=== PATIENT | male | born 1960 | race Caucasian/White ===

== ENCOUNTER 2017-06-03 22:40 | Inpatient (IN) | payer OTHER, SELFPAY ==
[~2017-06-03 22:40] MED LIST: ISOVUE-370 76%-LOCM 1 ML ONE
[2017-06-03 23:13] LABS: Bilirubin Negative (Negative); Blood, Urine Negative (Negative); Glucose, Urine (Dipstick) Negative (Negative); Ketone, Urine Negative (Negative); Nitrite Negative (Negative); Protein, Urine (Dipstick) Negative (Neg-Trace); Urobilinogen 0.2 mg/dL (0.2-1.0)
[2017-06-03 23:15] LABS: #Eosinphils 0.2 thou/uL (0.0-0.7); #Lymphocytes 1.9 thou/uL (1.20-3.40); #Monocytes 0.8 thou/uL (0.11-0.59); #Neutrophils 6.2 thou/uL (1.40-6.50); %Basophils 0.5 % (0.0-1.0); %Eosinophils 1.8 % (0.0-10.0); %Lymphocytes 20.7 % (21.0-51.0); %Monocytes 8.5 % (0.0-10.0); Hematocrit 38.4 % (42.0-52.0); Mean Platelet Volume 6.6 fL (7.4-10.4); Red Blood Cell (RBC) Count 3.94 mill/uL (4.70-6.10); White Blood Cell (WBC) Count 9.1 thou/uL (4.8-10.8)
--- NOTE | 2017-06-03 23:16 | RAD ---
RADIOGRAPH CHEST 1 VIEW: Date: 06/03/17 Time: 10:58 p.m. HISTORY: 57-year-old male with dyspnea and chest pain. COMPARISON: 11/25/16 FINDINGS: Again noted is the approximately 12 mm noncalcified left upper lobe pulmonary nodule, which has been stable since a CT angiogram of the chest of 05/06/14, indicating that it is benign. Lung volumes are low. Borderline or mild cardiomegaly. Diffuse mild interstitial densities. Questionable new additio nal irregularly shaped few nodular densities in the bilateral lower lung zones, the largest of which is approximately 3 x 3 cm density at the right lower lung zone. No pneumothorax. Lateral costophren ic angles are shape. IMPRESSION: 1. Prominent interstitial markings. 2. Questionable 3 cm new right lower lobe pulmonary mass versus infiltrate. 3. A CT may be useful. GRACE [] POS: [facility]
[2017-06-03 23:34] LABS: ALT (SGPT) 15 U/L (8-55); AST (SGOT) 17 U/L (5-34); Alkaline Phosphatase 48 U/L (40-150); Anion Gap 14 mmol/L (10-20); BUN (Urea Nitrogen) 11 mg/dL (8.4-25.7); Bilirubin, Total 0.5 mg/dL (0.2-1.2); Calc. Creatinine Clearance 0 mL/min (70-130); Calcium 8.2 mg/dL (7.8-10.44); Carbon Dioxide 20 mmol/L (22-29); Chloride 99 mmol/L (98-107); Estimated GFR-MDRD Greater than 90; Lipase 45 U/L (8-78); Magnesium 1.7 mg/dL (1.6-2.6)
[2017-06-03 23:39] LABS: Troponin I Less than 0.010 ng/mL (< 0.028)
--- NOTE | 2017-06-03 23:50 | CT ---
CTA THORAX WITH CONTRAST: DATE: 06/03/17 TIME: 11:13 p.m. (Computed Tomographic Angiography, chest(noncoronary) with contrast material, and image postprocessi ng) (PE protocol) HISTORY: 57-year-old male with productive cough, dyspnea, and chest pain. COMPARISON: CT pulmonary angiogram of 01/18/17. TECHNIQUE: IV injection of iodinated contrast: Isovue. Scan acquisition timing attempted to coincide with iodinated contrast bolus reaching maximal density in pulmonary arteries. 3D MIP reconstructions. FINDINGS: There is a new approximately 1.5 x 1 x 1 cm soft tissue attenuation pulmonary mass located in the r ight parahilar portion, deep within the right middle lobe, at a branching point of right middle lobe pulmonary arteries. This is surrounded by blood vessels (axial image 68 of 114, series 2 and series 3; coronal image 64 of 138, series 403; and oblique coronal image 25 of 68, series 402). In the contralateral left lung, there is a left upper lobe 1.5 x 1.2 x 1.4 cm pulmonary nodule which has been essentially stable since an older CTA of 05/06/14, and is therefore benign. It contains a p unctate 2 mm calcification centrally. There are nonspecific mild ground glass densities at the poste rior base of the right lower lobe. No pleural effusion or pneumothorax. There is cardiomegaly. Ther e are multiple mildly enlarged mediastinal lymph nodes which were also present on the previous CTAs of 01/18/17 and 05/06/14. No thoracic aortic aneurysm or dissection. No evidence of pulmonary thromboe mbolism. Again noted are the multiple old healed bilateral rib fracture deformities. IMPRESSION: 1. A new small 1.5 x 1 cm pulmonary nodule surrounded by blood vessels deep near the central po rtion of the right middle lobe. This could be a primary pulmonary neoplasm. It is not amenable to pe rcutaneous biopsy. PET scan is recommended for further evaluation. 2. No pulmonary thromboembolism. 3. Cardiomegaly. 4. Benign left upper lobe pulmonary nodule. 5. Multiple old healed bilateral rib fracture deformities. juliette[] POS: [facility]
[2017-06-04 00:37] LABS: PTT 30.6 SEC (22.9-36.1); Prothrombin Time 16.6 SEC (12.0-14.7)
[2017-06-04] MEDS ORDERED: Ondansetron HCl/PF 4 MG/2 ML Vial IVP PRN ×2 (01:43→02:27)
[2017-06-04] MEDS ORDERED: Ondansetron ODT 4 MG TAB SL PRN (01:43)
[2017-06-04] MEDS ORDERED: Acetaminophen 325 MG TAB PO PRN ×2 (01:43→02:27)
[2017-06-04] MEDS ORDERED: Senokot 8.6 MG TAB PO PRN (02:27)
[2017-06-04] MEDS ORDERED: Nitroglycerin 0.4 MG TAB (25 Tab Bottle) PO PRN (02:27)
[2017-06-04] MEDS ORDERED: Calcium Carbonate 500 MG ChewTAB PO PRN (02:27)
[2017-06-04] MEDS ORDERED: Milk Of Magnesia 30 ML UDCUP PO PRN (02:27)
[2017-06-04] MEDS ORDERED: Ondansetron ODT 4 MG TAB PO PRN (02:27)
[2017-06-04] MEDS ORDERED: Insulin Regular 300 UNITS/3 ML VIAL SC PRN (02:31)
[2017-06-04] MEDS ORDERED: Dextrose 50% Abboject 50 ML SYRINGE SLOW IVP PRN (02:31)
[2017-06-04] MEDS ORDERED: Dextrose 5% in Water 1,000 ML IV PRN (02:31)
[2017-06-04 02:44] LABS: Troponin I 0.016 ng/mL (< 0.028)
[2017-06-04] MEDS ORDERED: Warfarin Sodium 5 MG TAB PO SCH ×2 (02:45→17:00)
[2017-06-04 02:55] VITALS: BMI 33.0
[2017-06-04] MEDS ORDERED: Potassium Chloride 20 MEQ TAB PO SCH (03:00)
[2017-06-04] MEDS ORDERED: WARFARIN PO PRN (03:21)
--- NOTE | 2017-06-04 03:38 | HP ---
DATE OF ADMISSION: 06/04/2017 PRIMARY CARE PHYSICIAN: [facility], Dr. Spring. CHIEF COMPLAINT: Shortness of breath with chest discomfort and lightheadedness. HISTORY OF PRESENT ILLNESS: Patient is a 57-year-old male with venous thromboembolism, currently on anticoagulation, diabetes mellitus type 2, hypertension, and hyperlipidemia who presented to the em ergency room with above complaints. The shortness of breath started this afternoon when he returned home from work. The patient was dashawn rt of breath on mild to moderate exertion. He also had some chest discomfort radiating to his left arm. He felt lightheaded; however, denies any nausea or diaphoresis. He also had some cough produc tive of thick whitish phlegm. He had minimal wheezing. No fevers, chills, or sick contacts reporte d. No orthopnea or paroxysmal nocturnal dyspnea reported. He has chronic swelling, right more than left lower extremity due to DVTs. In the emergency room, his CT angiogram of the chest was negative for pulmonary embolism. His BNP a nd cardiac enzymes were normal. His initial O2 saturation was 88% on room air that improved with O2 supplementation. His EKG showed sinus rhythm with premature atrial complexes, right bundle branch block, and left anterior fascicular block. PAST MEDICAL HISTORY: 1. History of DVT and pulmonary embolism earlier this year on anticoagulation. 2. Diabetes mellitus type 2. 3. Hypertension. 4. Dyslipidemia. 5. History of diabetic foot ulcers in the past. PAST SURGICAL HISTORY: 1. Right toe amputation. 2. Left knee surgery. ALLERGIES: No known drug allergies. CURRENT HOME MEDICATIONS: Patient is currently on warfarin on Tuesday, Tuesday, and Tuesday; and 2. 5 mg on other days. The other home medications he takes is glipizide, metformin, and statins. He i s unable to recall the exact dosages. SOCIAL HISTORY: Patient currently lives at home. Denies any current use of alcohol or drug use. Adele ford has a [id number] smoking history. He denies any exposure to chemicals. FAMILY HISTORY: Father with unknown cancer. REVIEW OF SYSTEMS: The following complete review of systems was negative, unless otherwise mentione d in the HPI or below: Constitutional: Weight loss or gain, ability to conduct usual activities. Skin: Rash, itching. Eyes: Double vision, pain. ENT/Mouth: Nose bleeding, neck stiffness, pain, tenderness. Cardiovascular: Palpitations, dyspnea on exertion, orthopnea. Respiratory: Shortnes s of breath, wheezing, cough, hemoptysis, fever or night sweats. Gastrointestinal: Poor appetite, abdominal pain, heartburn, nausea, vomiting, constipation, or diarrhea. Genitourinary: Urgency, fr equency, dysuria, nocturia. Musculoskeletal: Pain, swelling. Neurologic/Psychiatric: Anxiety, de pression. Allergy/Immunologic: Skin rash, bleeding tendency. PHYSICAL EXAMINATION: VITAL SIGNS: In the emergency room, temperature 98.3, respirations 24, pulse of 79, blood pressure of 119/71 with O2 saturation 88% on room air. GENERAL: A 57-year-old male in minimal respiratory distress, able to complete short sentences. HEENT: Head: Atraumatic, normocephalic. Sclerae are anicteric. Moist mucous membranes. No oral lesion. NECK: Supple, no JVD, no carotid bruit. LUNGS: Showed scattered wheezing/rhonchi. No crackles. Lungs were symmetrical. HEART: S1, S2 present. Regular rate and rhythm. No rubs or gallops appreciated. ABDOMEN: Soft, nontender, bowel sounds present. EXTREMITIES: There is bilateral lower extremity swelling, right more than left. SKIN: Warm and dry. LYMPH NODES: No palpable lymph nodes in the neck. PERIPHERAL VASCULAR: Radial pulses palpable bilaterally. MUSCULOSKELETAL: No joint swelling or tenderness. LABORATORY FINDINGS: 1. EKG by my review as discussed above. CT angiogram of the chest by my review was negative for pu lmonary embolism. It showed a new small pulmonary nodule in the right middle lobe. 2. Troponins were normal. 3. BNP was 22.5. 4. D-dimer was normal. 5. Sodium was 130, potassium 3.4, chloride was 99, bicarbonate was 20, BUN 11, creatinine 0.82. 6. Magnesium was 1.7. 7. CBC showed WBC 9.1 with hemoglobin 13. Urinalysis was normal. IMPRESSION: 1. Acute hypoxic respiratory failure suspected secondary to chronic obstructive pulmonary disease e xacerbation. 2. Ongoing tobacco abuse. 3. Diabetes mellitus type 2. 4. Hypertension. 5. Dyslipidemia. 6. History of deep venous thrombosis/pulmonary embolism on anticoagulation with subtherapeutic INR. 7. Electrolyte imbalance (hyponatremia/hypokalemia). 8. Metabolic acidosis. 9. Macrocytic anemia. 10. Subtherapeutic INR. 11. Hypoglycemia. PLAN: The patient will be monitored on the telemetry unit. Due to chest discomfort, will get seria l cardiac enzymes. His echocardiogram earlier this year showed normal left ventricular ejection fra ction of 60%-65%. We will start him on nebulizer treatment every 4 hourly. We will consult Dr. Marni kearney in a.m. We will repeat labs. We will replace electrolytes. Insulin sliding scale. We will a dd Dulera. We will increase the Coumadin dose to 5 mg daily. We will check PT/INR every morning. Plan of care was discussed with the patient. He stated understanding.
[2017-06-04 03:51] LABS: Oxyhemoglobin 88.9 % (94.0-97.0)
[2017-06-04 03:52] LABS: Sodium 135 mmol/L (135-148)
[2017-06-04 03:53] LABS: Mode RA; Modified Allen's Test POSITIVE; Vent NO
[2017-06-04 06:42] LABS: Troponin I 0.012 ng/mL (< 0.028)
[2017-06-04 07:29] LABS: Anion Gap 10 mmol/L (10-20); BUN (Urea Nitrogen) 9 mg/dL (8.4-25.7); Calc. Creatinine Clearance 196 mL/min (70-130); Carbon Dioxide 26 mmol/L (22-29); Chloride 102 mmol/L (98-107); Estimated GFR-MDRD Greater than 90
[2017-06-04] MEDS: Budesonide 0.5 MG/2 ML NEB INH SCH ×2 (08:08→19:05)
[2017-06-04] MEDS: Mometasone/Formoterol 120 PUFF INHALER INH SCH ×2 (08:14→19:05)
[2017-06-04] MEDS ORDERED: Famotidine 20 MG TAB PO SCH (09:00)
[2017-06-04] MEDS: Insulin Regular 300 UNITS/3 ML VIAL SC PRN ×3 (12:11→21:49)
--- NOTE | 2017-06-04 18:17 | CON ---
DATE OF CONSULTATION: 06/04/2017 SERVICE: Pulmonary Medicine. REASON FOR CONSULTATION: Pulmonary nodule. HISTORY OF PRESENT ILLNESS: The patient is a 57-year-old white male with past medical history signi ficant for tobacco abuse. Roughly 6 months ago, he came in with pulmonary embolism and DVT. He has been on anticoagulation since. He has had a possible GI bleed and had episodes of hypercoagulable state. That being said, he has made through 6 months of therapy. He currently denies any fevers, c hills, nausea or vomiting. He presented to the hospital; however, with some difficulty breathing an d chest discomfort and lightheadedness. He had some wheezing and was little volume overloaded. He received some Lasix as well as some nebulized medications and steroids. Overnight, he had a profoun d improvement. Along the way, the patient ended up getting a CT scan of the chest, which demonstrat ed a new right middle lobe pulmonary nodule and a stable lingular pulmonary nodule. Lastly, the pat ient has completed 6 months of anticoagulation. That being said, along the way, he ended up getting an IVC filter. As such, ongoing anticoagulation is indicated. PAST MEDICAL HISTORY: 1. History of pulmonary embolism, status post 6 months of anticoagulation. 2. Type 2 diabetes mellitus. 3. Hypertension. 4. Dyslipidemia. PAST SURGICAL HISTORY: 1. Right toe amputation. 2. Left knee surgery. ALLERGIES: No known drug allergies. MEDICATIONS: List of inpatient medications was reviewed. Multiple updates were made. SOCIAL HISTORY: Negative for significant alcohol or illicit drug use. He continues to smoke half p ack per day and has greater than [id number] history of smoking. 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 FAMILY HISTORY: Noncontributory. REVIEW OF SYSTEMS: General, head, ears, eyes, nose, throat, cardiovascular, respiratory, GI, , mu sculoskeletal, neurologic and skin is negative except as mentioned in the HPI. PHYSICAL EXAMINATION: VITAL SIGNS: Afebrile, pulse 80, blood pressure 138/73, respirations 16, saturation 93% on room air . GENERAL: Patient is awake and alert, in no apparent distress. LUNGS: Decreased air entry. There is a very prolonged expiratory phase with no wheezing, rhonchi, or crackles appreciated. HEART: Normal rate, regular. ABDOMEN: Soft, nontender, nondistended, bowel sounds positive. MUSCULOSKELETAL: No cyanosis or clubbing. There is trace to 1+ pitting in the bilateral lower extr emities. GENITOURINARY: No Victoria. NEUROLOGIC: Grossly nonfocal. LABORATORY DATA: WBC 9.1, hemoglobin 13.0, platelets 241,000. A pH 7.31, pCO2 42, pO2 82 on room a ir corresponding to saturation of 96%. Basic metabolic profile is otherwise unremarkable. Cardiac enzymes negative x3, BNP is normal. Urinalysis is unremarkable. Urine drug screen as previously be en unremarkable. He also has a history of positive cocaine metabolites in the urine. IMAGIN. CTA of the chest demonstrates a stable lingular nodule. There is a right middle lobe nodule whi ch is new, surrounded by blood vessels. There are findings consistent with emphysema. There are no acute cardiopulmonary abnormalities otherwise identified. 2. Chest x-ray demonstrates possible new right-sided pulmonary nodule. ASSESSMENT: 1. Acute hypoxic respiratory failure, resolved. 2. Chronic obstructive pulmonary disease with acute exacerbation, improving. 3. Left lingular pulmonary nodule, stable since 2013. 4. Right middle lobe pulmonary nodule, new. 5. History of pulmonary embolus, status post 6 months of anticoagulation with IVC filter in place. PLAN: At this point, we can decrease the steroids. He can be discharged from the hospital on p.r.n . albuterol. We will have him return to clinic in roughly for 3-6 weeks in the outpatient setting, so that we can investigate underlying lung disease, consider him for long-acting therapy, and have a discussion about whether or not to discontinue anticoagulation. I will continue to follow while th e patient remains inhouse.
[2017-06-05 06:00] LABS: Prothrombin Time 15.9 SEC (12.0-14.7)
[2017-06-05 06:02] LABS: #Lymphocytes 1.2 thou/uL (1.20-3.40); #Monocytes 0.7 thou/uL (0.11-0.59); #Neutrophils 6.2 thou/uL (1.40-6.50); %Basophils 0.3 % (0.0-1.0); %Eosinophils 0.4 % (0.0-10.0); %Lymphocytes 14.6 % (21.0-51.0); %Monocytes 8.7 % (0.0-10.0); Hematocrit 41.9 % (42.0-52.0); Mean Platelet Volume 7.6 fL (7.4-10.4); Red Blood Cell (RBC) Count 4.26 mill/uL (4.70-6.10); White Blood Cell (WBC) Count 8.2 thou/uL (4.8-10.8)
[2017-06-05] MEDS: Insulin Regular 300 UNITS/3 ML VIAL SC PRN (06:02)
[2017-06-05 06:29] LABS: ALT (SGPT) 13 U/L (8-55); AST (SGOT) 13 U/L (5-34); Alkaline Phosphatase 54 U/L (40-150); Anion Gap 14 mmol/L (10-20); BUN (Urea Nitrogen) 10 mg/dL (8.4-25.7); Bilirubin, Total 0.3 mg/dL (0.2-1.2); Calc. Creatinine Clearance 184 mL/min (70-130); Calcium 9.3 mg/dL (7.8-10.44); Carbon Dioxide 23 mmol/L (22-29); Chloride 102 mmol/L (98-107); Estimated GFR-MDRD Greater than 90; Globulin 3.6 g/dL (2.4-3.5); Protein, Total 7.6 g/dL (6.0-8.3)
[2017-06-05] MEDS: Budesonide 0.5 MG/2 ML NEB INH SCH (07:38)
[2017-06-05] MEDS: Mometasone/Formoterol 120 PUFF INHALER INH SCH (07:53)
[2017-06-05] MEDS ORDERED: predniSONE 20 MG TAB PO SCH (08:00)
[2017-06-05 10:59] VITALS: TEMP 97.8
[2017-06-05 11:47] VITALS: BP 165/89
--- NOTE | 2017-06-05 17:16 | DIS ---
DATE OF ADMISSION: 06/04/2017 DATE OF DISCHARGE: 06/05/2017 DISCHARGE DIAGNOSES: 1. Acute hypoxic respiratory failure - resolved. 2. Acute exacerbation of chronic obstructive pulmonary disease, probably undiagnosed prior to admis aline. 3. Diabetes mellitus type 2. 4. History of pulmonary embolism. 5. Tobacco abuse, ongoing. 6. Iatrogenic coagulopathy secondary to Coumadin. 7. Hypertension. 8. History of alcohol abuse. CONSULTATION: Pulmonary, Dr. Santana. PROCEDURES: None. HISTORY AND PHYSICAL: Mr. Goodwin is a 57-year-old gentleman admitted [facility] 06/04/2017 and p resented to the emergency department for acute onset of shortness of breath. On evaluation, he was found to be hypoxemic. He was having chest discomfort and some lightheadedness. He was seen and ev aluated in the ER and we were asked to admit for further workup and evaluation. HOSPITAL COURSE: The patient was seen by Dr. Lyman and was admitted. He was started on sliding sca le insulin, nebulizer treatments q.4 hours, IV steroids, and Dulera. Pulmonary was consulted, Dr. Madeleine pickard did see him later in the morning. The patient was requesting to go home later in the day, bina kimbrough, due to his initial hypoxic presentation, recommend keep him staying overnight. He agreed. I think overnight, he had no further problems. By this morning, he was weaned off oxygen, feeling mu ch better. He has been switched to oral steroids that evening prior, was otherwise stable for disch arge with outpatient followup. I did offer him a nebulizer, which he preferred to use inhalers init ially. He denies any other current complaints at time of discharge. PHYSICAL EXAMINATION: The patient was seen and examined on the day of discharge. Discharge plan an d disposition were discussed with the patient face to face at the bedside. DISCHARGE MEDICATIONS: 1. Albuterol sulfate MDI 1-2 puffs p.o. every 2 hours p.r.n. shortness of breath or wheezing. 2. Spiriva 18 mcg inhaled daily. 3. Lipitor 10 mg p.o. daily. 4. Zestril 5 mg daily. 5. Warfarin 5 mg daily as prior to admission. 6. Glipizide 10 mg p.o. daily. 7. Metformin 500 mg p.o. b.i.d. 8. Prednisone 20 mg tablets 40 mg daily, to decrease by half tablets every 2-3 days until tapered o ff. FOLLOWUP APPOINTMENTS 1. PCP at [facility] within a week. 2. Dr. Santana in 2-3 weeks per his clinic. DISPOSITION: The patient will be discharged home via private vehicle. DISCHARGE CONDITION: Good.
== END 2017-06-05 11:50 | disposition home or self-care (01) | DRG 189 ==
LOC: ERS 22:40 → 2NO 06-04 01:28
PROVIDERS: ADMIT Internal Medicine; ATTEND Internal Medicine
DX: J96.01 Acute respiratory failure with hypoxia (principal); E87.2 Acidosis; E87.1 Hypo-osmolality and hyponatremia; E11.9 Type 2 diabetes mellitus without complications; I10 Essential (primary) hypertension; D53.9 Nutritional anemia, unspecified; J44.1 Chronic obstructive pulmonary disease with (acute) exacerbation; F17.210 Nicotine dependence, cigarettes, uncomplicated; E87.6 Hypokalemia; Z79.84 Long term (current) use of oral hypoglycemic drugs; E66.9 Obesity, unspecified; Z68.33 Body mass index [BMI] 33.0-33.9, adult; Z86.718 Personal history of other venous thrombosis and embolism; Z86.711 Personal history of pulmonary embolism; Z79.01 Long term (current) use of anticoagulants; E78.5 Hyperlipidemia, unspecified; Z89.421 Acquired absence of other right toe(s); R91.1 Solitary pulmonary nodule
CPT/HCPCS: 36415; 36416; 71010; 71275; 80048; 80053; 81003; 82553; 82805; 83690; 83735; 83880; 84484; 85025; 85379; 85610; 85730; 90471; 90732; 93005; 94760; G0009; J1815; J2920; J7506; J7620; J7626

== ENCOUNTER 2017-12-15 14:56 | Emergency (ER) | payer OTHER, SELFPAY ==
[2017-12-15] MEDS ORDERED: Ketorolac Tromethamine 30 MG/ML VIAL ONE (16:10)
--- NOTE | 2017-12-15 16:58 | ULT ---
ULTRASOUND VENOUS DOPPLER RIGHT SIDE 12/15/17 HISTORY: Right lower extremity pain and edema. Evaluate for deep venous thrombosis. COMPARISON: Venous doppler 12/24/16. FINDINGS: Real time paige scale, color doppler with spectral analysis of the right lower extremity venous system was performed with the linear transducer. Of note, the patient last year had extensive thrombus thro ughout the right lower extremity. On today's examination, there is nonocclusive improving thrombus of the right lower extremity from the femoral vein to the popliteal vein. This is improved from the [facility] parison study. IMPRESSION: Nonocclusive right lower extremity venous thrombosis. Findings are improved from the 12/24/16 study. POS: [facility]
== END 2017-12-15 17:57 | disposition home or self-care (01) ==
LOC: ERS 14:56
DX: I82.401 Acute embolism and thrombosis of unspecified deep veins of right lower extremity (principal); E11.9 Type 2 diabetes mellitus without complications; E78.5 Hyperlipidemia, unspecified; E66.9 Obesity, unspecified; F17.210 Nicotine dependence, cigarettes, uncomplicated; I10 Essential (primary) hypertension; Z71.6 Tobacco abuse counseling; Z79.84 Long term (current) use of oral hypoglycemic drugs; Z79.899 Other long term (current) drug therapy; Z79.01 Long term (current) use of anticoagulants
CPT/HCPCS: 96372; 99406; J1885

== ENCOUNTER 2023-07-05 12:48 | Outpatient (CLI) | payer OTHER ==
[2023-07-05 13:54] LABS: Hematocrit 43.7 % (38.8-50.0); Hemoglobin 14.5 g/dL (13.5-17.5); Mean Corpuscular HGB CONC 33.2 g/dL (32.0-36.0); Mean Corpuscular Volume 93.4 fl (81.2-95.1); Mean Platelet Volume 9.9 fl (7.4-10.4); Platelet Count 243 10x3/uL (150-450); RBC Distribution Width 13.8 % (11.5-14.5); Red Blood Cell (RBC) Count 4.68 10x6/uL (4.32-5.72); White Blood Cell (WBC) Count 5.9 10x3/uL (3.5-10.5)
[2023-07-05 14:26] LABS: Anion Gap 15 mmol/L (10-20); BUN (Urea Nitrogen) 9 mg/dL (8.4-25.7); Calc. Creatinine Clearance 0 mL/min (70-130); Calcium 9.3 mg/dL (7.8-10.44); Carbon Dioxide 25 mmol/L (23-31); Chloride 99 mmol/L (98-107); Estimated GFR 102; Glucose 174 mg/dL (80-115); Potassium 4.4 mmol/L (3.5-5.1); Sodium 135 mmol/L (136-145)
== END 2023-07-05 12:49 | disposition home or self-care (01) ==
LOC: LABBT 12:48
PROVIDERS: ATTEND Otolaryngology Plastic Surgery within the Head & Neck
DX: Z01.818 Encounter for other preprocedural examination (principal); J38.3 Other diseases of vocal cords; J38.00 Paralysis of vocal cords and larynx, unspecified
CPT/HCPCS: 80048; 85027; 93005; 93010

== ENCOUNTER 2023-07-06 08:49 | Inpatient (IN) | payer OTHER ==
[2023-07-06] MEDS ORDERED: PROPOFOL 20 ML ONE (09:45)
[2023-07-06] MEDS ORDERED: Lidocaine 2% 6 ML (Jelly) SYR ONE (09:45)
[2023-07-06] MEDS ORDERED: Ketamine In 0.9 % NaCl 50 MG/5 ML SYRINGE ONE (09:45)
[2023-07-06] MEDS ORDERED: EPINEPHrine 1 MG/ML VIAL ONE ×2 (09:45→10:23)
[2023-07-06] MEDS ORDERED: Lidocaine 1% PF 5 ML VIAL ONE (09:45)
[2023-07-06] MEDS ORDERED: Lidocaine 1% (PF) 30 ML VIAL ONE (09:45)
[2023-07-06] MEDS ORDERED: PROPOFOL 200 MG/20 ML VIAL ONE (09:52)
[2023-07-06] MEDS ORDERED: Ondansetron PF 4 MG/2 ML Vial ONE ×2 (09:52→10:53)
[2023-07-06] MEDS ORDERED: Dexamethasone 20 MG/5 ML VIAL ONE ×2 (09:52→10:53)
[2023-07-06] MEDS ORDERED: fentaNYL PF 100 MCG/2 ML SYRINGE ONE (09:57)
[2023-07-06] MEDS ORDERED: CEFAZOLIN 1 GM VIAL ONE (10:19)
[2023-07-06] MEDS ORDERED: Rocuronium Bromide 10 MG/ML (10ML VIAL) ONE (10:20)
[2023-07-06] MEDS ORDERED: PHENYLEPHRINE-NS 100 MCG/ML 10 ML SYRINGE ONE (10:26)
[2023-07-06] MEDS ORDERED: SUGAMMADEX SODIUM 200 MG/2 ML VIAL ONE (10:48)
[2023-07-06] MEDS ORDERED: fentaNYL 50 mcg/mL 1 mL Vial ONE (11:44)
[2023-07-06] MEDS ORDERED: Ondansetron PF 4 MG/2 ML Vial IVP PRN (12:20)
[2023-07-06] MEDS ORDERED: Dextrose 50% Abboject 50 ML SYRINGE SLOW IVP PRN (12:41)
[2023-07-06] MEDS ORDERED: Glucagon 1 MG/ML KIT IM PRN (12:41)
[2023-07-06] MEDS ORDERED: Dextrose 5% in Water 1,000 ML IV PRN (12:41)
[2023-07-06] MEDS: Morphine 2 MG/ML VIAL SLOW IVP PRN ×4 (12:59→22:47)
[2023-07-06] MEDS: Sodium Chloride 0.45% 1,000 ML IV SCH ×2 (12:59→21:44)
[2023-07-06] MEDS ORDERED: Electrolyte Replacement Protocol 1 EACH IVPB SCH (13:05)
[2023-07-06] MEDS: CEFAZOLIN 1 GM in Sodium Chloride 0.9% 100 ML IVPB SCH (18:30)
[2023-07-06] MEDS: HumaLOG 300 UNITS/3 ML VIAL SC PRN ×2 (18:48→23:37)
[2023-07-06] MEDS ORDERED: Non-Formulary Item 1 EACH (Ertapenem 1 GM Vial) IVPB SCH (19:30)
[2023-07-06] MEDS ORDERED: Labetalol HCl 100 MG/20 ML VIAL SLOW IVP PRN (19:32)
[2023-07-06] MEDS ORDERED: hydrALAZINE 20 MG/ML VIAL SLOW IVP PRN (19:32)
[2023-07-06 20:40] LABS: #Monocytes 0.2 thou/uL (0.11-0.59); #Neutrophils 7.9 thou/uL (1.40-6.50); %Basophils 0.1 % (0.0-1.0); %Lymphocytes 7.4 % (21.0-51.0); %Monocytes 2.6 % (0.0-10.0); %Neutrophils 89.7 % (42.0-75.0); Hematocrit 40.8 % (42.0-52.0); Mean Corpuscular HGB CONC 34.3 g/dL (32.0-36.0); Mean Corpuscular Hemoglobin 31.7 pg (27.0-31.0); Mean Corpuscular Volume 92.3 fl (78.0-98.0); Mean Platelet Volume 10.3 fL (7.4-10.4); Platelet Count 202 10x3/uL (130-400); RBC Distribution Width 13.6 % (11.5-14.5); Red Blood Cell (RBC) Count 4.42 mill/uL (4.70-6.10); White Blood Cell (WBC) Count 8.8 10x3/uL (4.8-10.8)
[2023-07-06 20:53] LABS: Prothrombin Time 13.5 sec (12.0-14.7)
[2023-07-06 20:54] LABS: PTT 25.1 sec (22.9-36.1)
[2023-07-06] MEDS ORDERED: Famotidine/PF 20 mg/2ml Vial SLOW IVP SCH (21:00)
[2023-07-06] MEDS ORDERED: Ertapenem 1 GM in Sodium Chloride 0.9% 100 ML IVPB SCH (21:00)
[2023-07-07] MEDS: Morphine 2 MG/ML VIAL SLOW IVP PRN ×7 (01:19→23:53)
[2023-07-07] MEDS: CEFAZOLIN 1 GM in Sodium Chloride 0.9% 100 ML IVPB SCH ×3 (02:31→18:43)
[2023-07-07] MEDS: HumaLOG 300 UNITS/3 ML VIAL SC PRN ×2 (03:55→21:36)
[2023-07-07 04:34] LABS: #Monocytes 0.6 thou/uL (0.11-0.59); #Neutrophils 7.4 thou/uL (1.40-6.50); %Basophils 0.2 % (0.0-1.0); %Lymphocytes 10.3 % (21.0-51.0); %Neutrophils 81.9 % (42.0-75.0); Hematocrit 39.5 % (42.0-52.0); Hemoglobin 13.2 g/dL (14.0-18.0); Mean Corpuscular HGB CONC 33.4 g/dL (32.0-36.0); Mean Corpuscular Hemoglobin 31.1 pg (27.0-31.0); Mean Corpuscular Volume 93.2 fl (78.0-98.0); Mean Platelet Volume 10.7 fL (7.4-10.4); Platelet Count 209 10x3/uL (130-400); RBC Distribution Width 13.5 % (11.5-14.5); Red Blood Cell (RBC) Count 4.24 mill/uL (4.70-6.10)
[2023-07-07 05:01] LABS: Anion Gap 14 mmol/L (10-20); BUN (Urea Nitrogen) 12 mg/dL (8.4-25.7); Calc. Creatinine Clearance 183 mL/min (70-130); Calcium 8.5 mg/dL (7.8-10.44); Carbon Dioxide 26 mmol/L (23-31); Chloride 99 mmol/L (98-107); Estimated GFR 105; Glucose 146 mg/dL (80-115); Magnesium 1.5 mg/dL (1.6-2.6); Phosphorus 3.3 mg/dL (2.3-4.7); Potassium 4.4 mmol/L (3.5-5.1); Sodium 135 mmol/L (136-145)
[2023-07-07] MEDS ORDERED: Magnesium 2 GM/50 ML(in water) 2 GM in Premix 1 BAG IVPB SCH (06:00)
[2023-07-07] MEDS: Sodium Chloride 0.45% 1,000 ML IV SCH ×4 (06:21→22:23)
[2023-07-07] MEDS: Pantoprazole 40 MG VIAL IVP SCH (10:00)
[2023-07-08] MEDS: CEFAZOLIN 1 GM in Sodium Chloride 0.9% 100 ML IVPB SCH ×2 (01:38→08:46)
[2023-07-08] MEDS: Morphine 2 MG/ML VIAL SLOW IVP PRN ×7 (04:31→22:17)
[2023-07-08 06:06] LABS: #Monocytes 0.6 thou/uL (0.11-0.59); #Neutrophils 4.9 thou/uL (1.40-6.50); %Basophils 0.3 % (0.0-1.0); %Eosinophils 0.6 % (0.0-10.0); %Lymphocytes 18.4 % (21.0-51.0); %Monocytes 9.4 % (0.0-10.0); %Neutrophils 70.9 % (42.0-75.0); Hematocrit 37.2 % (42.0-52.0); Hemoglobin 12.4 g/dL (14.0-18.0); Mean Corpuscular HGB CONC 33.3 g/dL (32.0-36.0); Mean Corpuscular Hemoglobin 31.9 pg (27.0-31.0); Mean Corpuscular Volume 95.6 fl (78.0-98.0); Mean Platelet Volume 10.3 fL (7.4-10.4); Platelet Count 165 10x3/uL (130-400); RBC Distribution Width 13.8 % (11.5-14.5); Red Blood Cell (RBC) Count 3.89 mill/uL (4.70-6.10); White Blood Cell (WBC) Count 6.8 10x3/uL (4.8-10.8)
[2023-07-08 06:32] LABS: Anion Gap 12 mmol/L (10-20); BUN (Urea Nitrogen) 8 mg/dL (8.4-25.7); Calc. Creatinine Clearance 187 mL/min (70-130); Calcium 8.5 mg/dL (7.8-10.44); Carbon Dioxide 27 mmol/L (23-31); Chloride 100 mmol/L (98-107); Estimated GFR 106; Glucose 116 mg/dL (80-115); Potassium 3.9 mmol/L (3.5-5.1); Sodium 135 mmol/L (136-145)
[2023-07-08] MEDS: Pantoprazole 40 MG VIAL IVP SCH (08:46)
[2023-07-08] MEDS: Sodium Chloride 0.45% 1,000 ML IV SCH ×2 (11:45→20:01)
[2023-07-08] MEDS: HumaLOG 300 UNITS/3 ML VIAL SC PRN (18:12)
[2023-07-09] MEDS: Morphine 2 MG/ML VIAL SLOW IVP PRN ×10 (02:37→22:20)
[2023-07-09] MEDS: Sodium Chloride 0.45% 1,000 ML IV SCH ×3 (02:39→22:36)
[2023-07-09 04:58] LABS: #Eosinphils 0.1 thou/uL (0.0-0.7); #Monocytes 0.8 thou/uL (0.11-0.59); %Basophils 0.7 % (0.0-1.0); %Lymphocytes 19.8 % (21.0-51.0); %Monocytes 12.4 % (0.0-10.0); %Neutrophils 65.4 % (42.0-75.0); Hematocrit 37.2 % (42.0-52.0); Hemoglobin 12.4 g/dL (14.0-18.0); Mean Corpuscular HGB CONC 33.3 g/dL (32.0-36.0); Mean Corpuscular Hemoglobin 31.4 pg (27.0-31.0); Mean Corpuscular Volume 94.2 fl (78.0-98.0); Platelet Count 164 10x3/uL (130-400); RBC Distribution Width 13.8 % (11.5-14.5); Red Blood Cell (RBC) Count 3.95 mill/uL (4.70-6.10); White Blood Cell (WBC) Count 6.1 10x3/uL (4.8-10.8)
[2023-07-09 05:19] LABS: Anion Gap 14 mmol/L (10-20); BUN (Urea Nitrogen) 7 mg/dL (8.4-25.7); Calc. Creatinine Clearance 190 mL/min (70-130); Calcium 8.9 mg/dL (7.8-10.44); Carbon Dioxide 27 mmol/L (23-31); Chloride 100 mmol/L (98-107); Estimated GFR 106; Glucose 117 mg/dL (80-115); Sodium 137 mmol/L (136-145)
[2023-07-09] MEDS: Pantoprazole 40 MG VIAL IVP SCH (09:05)
[2023-07-10] MEDS: Morphine 2 MG/ML VIAL SLOW IVP PRN ×8 (00:28→20:44)
[2023-07-10 06:34] LABS: #Eosinphils 0.1 thou/uL (0.0-0.7); #Monocytes 0.6 thou/uL (0.11-0.59); %Basophils 0.5 % (0.0-1.0); %Lymphocytes 16.6 % (21.0-51.0); %Neutrophils 70.5 % (42.0-75.0); Hematocrit 37.5 % (42.0-52.0); Hemoglobin 12.5 g/dL (14.0-18.0); Mean Corpuscular HGB CONC 33.3 g/dL (32.0-36.0); Mean Corpuscular Hemoglobin 31.1 pg (27.0-31.0); Mean Corpuscular Volume 93.3 fl (78.0-98.0); Platelet Count 173 10x3/uL (130-400); RBC Distribution Width 13.5 % (11.5-14.5); Red Blood Cell (RBC) Count 4.02 mill/uL (4.70-6.10); White Blood Cell (WBC) Count 5.6 10x3/uL (4.8-10.8)
[2023-07-10] MEDS: Sodium Chloride 0.45% 1,000 ML IV SCH ×2 (06:53→15:24)
[2023-07-10 06:57] LABS: Anion Gap 13 mmol/L (10-20); BUN (Urea Nitrogen) 6 mg/dL (8.4-25.7); Calc. Creatinine Clearance 194 mL/min (70-130); Calcium 8.7 mg/dL (7.8-10.44); Carbon Dioxide 27 mmol/L (23-31); Chloride 99 mmol/L (98-107); Estimated GFR 108; Glucose 104 mg/dL (80-115); Sodium 135 mmol/L (136-145)
[2023-07-10] MEDS: Pantoprazole 40 MG VIAL IVP SCH (09:33)
[2023-07-10] MEDS ORDERED: HYDROcodone/Acetaminophen 10/325 mg Tablet PO PRN (19:15)
[2023-07-10] MEDS ORDERED: Ertapenem 1 GM in Sodium Chloride 0.9% 100 ML IVPB SCH (20:00)
[2023-07-10] MEDS: Amiodarone 200 MG TAB PO SCH (20:44)
[2023-07-10] MEDS: Apixaban 5 MG TAB PO SCH (20:44)
[2023-07-10] MEDS: Metoprolol Tartrate 100 MG TAB PO SCH (20:45)
[2023-07-10] MEDS: Atorvastatin Calcium 40 MG TAB PO SCH (20:48)
[2023-07-10] MEDS ORDERED: Metoprolol Tartrate 50 MG TAB PO SCH (21:00)
[2023-07-10] MEDS ORDERED: Apixaban 5 MG TAB PO SCH (21:00)
[2023-07-10] MEDS ORDERED: Amiodarone 200 MG TAB PO SCH (21:00)
[2023-07-11] MEDS: Sodium Chloride 0.45% 1,000 ML IV SCH ×4 (00:13→21:00)
[2023-07-11] MEDS: Morphine 2 MG/ML VIAL SLOW IVP PRN ×11 (00:13→22:05)
[2023-07-11 04:47] LABS: #Eosinphils 0.2 thou/uL (0.0-0.7); #Monocytes 0.8 thou/uL (0.11-0.59); #Neutrophils 4.9 thou/uL (1.40-6.50); %Basophils 0.4 % (0.0-1.0); %Eosinophils 2.3 % (0.0-10.0); %Monocytes 11.1 % (0.0-10.0); %Neutrophils 69.9 % (42.0-75.0); Hematocrit 36.5 % (42.0-52.0); Hemoglobin 12.1 g/dL (14.0-18.0); Mean Corpuscular HGB CONC 33.2 g/dL (32.0-36.0); Mean Corpuscular Hemoglobin 30.9 pg (27.0-31.0); Mean Corpuscular Volume 93.4 fl (78.0-98.0); Mean Platelet Volume 10.1 fL (7.4-10.4); Platelet Count 177 10x3/uL (130-400); RBC Distribution Width 13.4 % (11.5-14.5); Red Blood Cell (RBC) Count 3.91 mill/uL (4.70-6.10)
[2023-07-11 06:16] LABS: Anion Gap 12 mmol/L (10-20); BUN (Urea Nitrogen) 5 mg/dL (8.4-25.7); Calc. Creatinine Clearance 182 mL/min (70-130); Carbon Dioxide 26 mmol/L (23-31); Chloride 100 mmol/L (98-107); Estimated GFR 106; Glucose 132 mg/dL (80-115); Potassium 4.1 mmol/L (3.5-5.1); Sodium 134 mmol/L (136-145)
[2023-07-11] MEDS ORDERED: Clopidogrel Bisulfate 75 MG TAB PO SCH (09:00)
[2023-07-11] MEDS: Amiodarone 200 MG TAB PO SCH ×2 (10:35→20:02)
[2023-07-11] MEDS: Apixaban 5 MG TAB PO SCH ×2 (10:35→20:02)
[2023-07-11] MEDS: Metoprolol Tartrate 100 MG TAB PO SCH ×2 (10:36→20:01)
[2023-07-11] MEDS: Clopidogrel Bisulfate 75 MG TAB PO SCH (10:36)
[2023-07-11] MEDS: Pantoprazole 40 MG VIAL IVP SCH (10:36)
[2023-07-11] MEDS: Empagliflozin 25 MG TAB PO SCH (10:36)
[2023-07-11] MEDS: Atorvastatin Calcium 40 MG TAB PO SCH (20:02)
[2023-07-12] MEDS: Morphine 2 MG/ML VIAL SLOW IVP PRN ×10 (00:07→22:33)
[2023-07-12] MEDS: Sodium Chloride 0.45% 1,000 ML IV SCH ×2 (04:58→16:49)
[2023-07-12 07:41] LABS: #Eosinphils 0.1 thou/uL (0.0-0.7); #Monocytes 0.9 thou/uL (0.11-0.59); #Neutrophils 4.1 thou/uL (1.40-6.50); %Basophils 0.7 % (0.0-1.0); %Eosinophils 2.1 % (0.0-10.0); %Lymphocytes 15.9 % (21.0-51.0); %Monocytes 13.9 % (0.0-10.0); %Neutrophils 67.1 % (42.0-75.0); Hemoglobin 12.8 g/dL (14.0-18.0); Mean Corpuscular HGB CONC 33.7 g/dL (32.0-36.0); Mean Corpuscular Hemoglobin 31.2 pg (27.0-31.0); Mean Corpuscular Volume 92.7 fl (78.0-98.0); Mean Platelet Volume 9.8 fL (7.4-10.4); Platelet Count 182 10x3/uL (130-400); RBC Distribution Width 13.4 % (11.5-14.5); White Blood Cell (WBC) Count 6.1 10x3/uL (4.8-10.8)
[2023-07-12 08:02] LABS: Anion Gap 13 mmol/L (10-20); BUN (Urea Nitrogen) 8 mg/dL (8.4-25.7); Calc. Creatinine Clearance 177 mL/min (70-130); Calcium 8.9 mg/dL (7.8-10.44); Carbon Dioxide 27 mmol/L (23-31); Chloride 98 mmol/L (98-107); Estimated GFR 105; Glucose 86 mg/dL (80-115); Sodium 134 mmol/L (136-145)
[2023-07-12] MEDS: Clopidogrel Bisulfate 75 MG TAB PO SCH (08:58)
[2023-07-12] MEDS: Amiodarone 200 MG TAB PO SCH ×2 (08:58→20:01)
[2023-07-12] MEDS: Metoprolol Tartrate 100 MG TAB PO SCH ×2 (08:58→20:03)
[2023-07-12] MEDS: Apixaban 5 MG TAB PO SCH ×2 (08:58→20:01)
[2023-07-12] MEDS: Empagliflozin 25 MG TAB PO SCH (08:58)
[2023-07-12] MEDS: Pantoprazole 40 MG VIAL IVP SCH (08:59)
[2023-07-12 10:14] VITALS: BMI 30.3
[2023-07-12] MEDS: Hydrocodone-Acetamin 15 ML UDCUP PO PRN (17:59)
[2023-07-12] MEDS: Atorvastatin Calcium 40 MG TAB PO SCH (20:01)
[2023-07-13] MEDS: Hydrocodone-Acetamin 15 ML UDCUP PO PRN (01:28)
[2023-07-13] MEDS: Morphine 2 MG/ML VIAL SLOW IVP PRN ×4 (01:29→09:43)
[2023-07-13] MEDS: Sodium Chloride 0.45% 1,000 ML IV SCH ×2 (03:26→09:44)
[2023-07-13 06:22] LABS: #Eosinphils 0.1 thou/uL (0.0-0.7); #Monocytes 0.8 thou/uL (0.11-0.59); #Neutrophils 3.2 thou/uL (1.40-6.50); %Basophils 0.4 % (0.0-1.0); %Eosinophils 2.5 % (0.0-10.0); %Lymphocytes 20.7 % (21.0-51.0); %Monocytes 14.5 % (0.0-10.0); %Neutrophils 61.3 % (42.0-75.0); Hemoglobin 12.6 g/dL (14.0-18.0); Mean Corpuscular HGB CONC 34.1 g/dL (32.0-36.0); Mean Corpuscular Hemoglobin 31.3 pg (27.0-31.0); Mean Platelet Volume 10.2 fL (7.4-10.4); Platelet Count 221 10x3/uL (130-400); RBC Distribution Width 13.4 % (11.5-14.5); Red Blood Cell (RBC) Count 4.02 mill/uL (4.70-6.10); White Blood Cell (WBC) Count 5.2 10x3/uL (4.8-10.8)
[2023-07-13 06:52] LABS: Anion Gap 16 mmol/L (10-20); BUN (Urea Nitrogen) 9 mg/dL (8.4-25.7); Calc. Creatinine Clearance 167 mL/min (70-130); Calcium 9.3 mg/dL (7.8-10.44); Carbon Dioxide 25 mmol/L (23-31); Chloride 98 mmol/L (98-107); Estimated GFR 103; Glucose 92 mg/dL (80-115); Potassium 4.2 mmol/L (3.5-5.1); Sodium 135 mmol/L (136-145)
[2023-07-13] MEDS: Metoprolol Tartrate 100 MG TAB PO SCH (09:44)
[2023-07-13] MEDS: Amiodarone 200 MG TAB PO SCH (09:44)
[2023-07-13] MEDS: Clopidogrel Bisulfate 75 MG TAB PO SCH (09:44)
[2023-07-13] MEDS: Apixaban 5 MG TAB PO SCH (09:44)
[2023-07-13] MEDS: Pantoprazole 40 MG VIAL IVP SCH (09:44)
[2023-07-13] MEDS: Empagliflozin 25 MG TAB PO SCH (09:44)
[2023-07-13 16:07] VITALS: BP 118/76; TEMP 97.6
[2023-07-14] MEDS ORDERED: Clopidogrel Bisulfate 75 MG TAB PO SCH (09:00)
[2023-07-14] MEDS ORDERED: Apixaban 5 MG TAB PO SCH (09:00)
== END 2023-07-13 17:10 | disposition home or self-care (01) | DRG 12 ==
LOC: SDC 08:49 → CCU 10:49 → UNDOADMIN 11:41 → SURG B 07-07 22:14
PROVIDERS: ADMIT Otolaryngology Plastic Surgery within the Head & Neck; ATTEND Otolaryngology Plastic Surgery within the Head & Neck
PROC: 0B110F4 Bypass Trachea to Cutaneous with Tracheostomy Device, Open Approach (ICD-10-PCS; principal; 2023-07-06)
PROC: 3E033XZ Introduction of Vasopressor into Peripheral Vein, Percutaneous Approach (ICD-10-PCS; 2023-07-06)
DX: C32.0 Malignant neoplasm of glottis (principal); E87.1 Hypo-osmolality and hyponatremia; I42.8 Other cardiomyopathies; J38.3 Other diseases of vocal cords; J38.00 Paralysis of vocal cords and larynx, unspecified; I10 Essential (primary) hypertension; I73.9 Peripheral vascular disease, unspecified; I25.10 Atherosclerotic heart disease of native coronary artery without angina pectoris; E11.9 Type 2 diabetes mellitus without complications; F17.210 Nicotine dependence, cigarettes, uncomplicated; F19.10 Other psychoactive substance abuse, uncomplicated; J44.9 Chronic obstructive pulmonary disease, unspecified; J38.01 Paralysis of vocal cords and larynx, unilateral; J38.2 Nodules of vocal cords; I48.91 Unspecified atrial fibrillation; R13.10 Dysphagia, unspecified; Z79.899 Other long term (current) drug therapy; Z79.82 Long term (current) use of aspirin; Z86.711 Personal history of pulmonary embolism; Z86.718 Personal history of other venous thrombosis and embolism; Z89.429 Acquired absence of other toe(s), unspecified side; Z98.890 Other specified postprocedural states
CPT/HCPCS: 36415; 36416; 80048; 83735; 84100; 85025; 85384; 85610; 85730; 88305; 88342; 94640; 97139; C9113; J0171; J0690; J1100; J1335; J1815; J2001; J2272; J2405; J2704; J3010; J3475; J3490

== ENCOUNTER 2023-07-27 08:56 | Outpatient (CLI) | payer OTHER ==
[2023-07-27] MEDS ORDERED: Iopamidol 370 76% 100 ML VIAL ONE (10:10)
== END 2023-07-27 08:57 | disposition home or self-care (01) ==
LOC: CT 08:56
PROVIDERS: ATTEND Radiology Radiation Oncology
DX: C32.1 Malignant neoplasm of supraglottis (principal); E27.9 Disorder of adrenal gland, unspecified; R59.0 Localized enlarged lymph nodes; J38.7 Other diseases of larynx
CPT/HCPCS: 70491; 71260; Q9967

== ENCOUNTER 2023-07-27 10:17 | Outpatient (CLI) | payer OTHER | END 2023-07-27 10:18 | disposition home or self-care (01) | LOC: RAD 10:17 | PROVIDERS: ATTEND Radiology Radiation Oncology | DX: R13.10 Dysphagia, unspecified (principal); C32.9 Malignant neoplasm of larynx, unspecified | CPT/HCPCS: 74230 ==

== ENCOUNTER 2023-09-12 10:12 | Emergency (ER) | payer OTHER ==
[2023-09-12 11:33] LABS: #Basophils 0.1 thou/uL (0.0-0.2); #Eosinphils 0.2 thou/uL (0.0-0.7); #Monocytes 0.4 thou/uL (0.11-0.59); #Neutrophils 3.8 thou/uL (1.40-6.50); %Basophils 0.8 % (0.0-1.0); %Eosinophils 3.1 % (0.0-10.0); %Lymphocytes 27.7 % (21.0-51.0); %Monocytes 6.3 % (0.0-10.0); %Neutrophils 61.9 % (42.0-75.0); Hematocrit 34.5 % (42.0-52.0); Hemoglobin 11.2 g/dL (14.0-18.0); Mean Corpuscular HGB CONC 32.5 g/dL (32.0-36.0); Mean Corpuscular Hemoglobin 30.4 pg (27.0-31.0); Mean Corpuscular Volume 93.5 fl (78.0-98.0); Mean Platelet Volume 9.9 fL (7.4-10.4); Platelet Count 279 10x3/uL (130-400); Red Blood Cell (RBC) Count 3.69 mill/uL (4.70-6.10); White Blood Cell (WBC) Count 6.2 10x3/uL (4.8-10.8)
[2023-09-12 11:56] LABS: ALT (SGPT) 17 U/L (8-55); AST (SGOT) 17 U/L (5-34); Albumin 3.7 g/dL (3.4-4.8); Alkaline Phosphatase 120 U/L (40-110); Anion Gap 10 mmol/L (10-20); BUN (Urea Nitrogen) 10 mg/dL (8.4-25.7); Bilirubin, Total 0.6 mg/dL (0.2-1.2); Calc. Creatinine Clearance 0 mL/min (70-130); Calcium 9.1 mg/dL (7.8-10.44); Carbon Dioxide 27 mmol/L (23-31); Chloride 104 mmol/L (98-107); Estimated GFR 101; Globulin 3.6 g/dL (2.4-3.5); Glucose 204 mg/dL (80-115); Potassium 4.4 mmol/L (3.5-5.1); Protein, Total 7.3 g/dL (5.8-8.1); Sodium 137 mmol/L (136-145)
[2023-09-12] MEDS ORDERED: Iopamidol-370 76% 500 ML MDV (1 ML CHARGE) ONE (13:33)
[2023-09-12] MEDS ORDERED: HYDROcodone/Acetaminophen 10/325 mg Tablet ONE (17:03)
== END 2023-09-12 18:00 | disposition home or self-care (01) ==
LOC: ERS 10:12
DX: C32.9 Malignant neoplasm of larynx, unspecified (principal); Z87.891 Personal history of nicotine dependence
CPT/HCPCS: 36415; 70491; 71045; 71260; 80053; 85025; Q9967

== ENCOUNTER 2023-11-14 10:15 | Outpatient (CLI) | payer OTHER | END 2023-11-14 10:16 | disposition home or self-care (01) | LOC: PET 10:15 | PROVIDERS: ATTEND Radiology Radiation Oncology | DX: C32.1 Malignant neoplasm of supraglottis (principal); J38.7 Other diseases of larynx; R59.0 Localized enlarged lymph nodes | CPT/HCPCS: 78815; A9552 ==

== ENCOUNTER 2024-01-27 09:41 | Inpatient (IN) | payer OTHER ==
[2024-01-27 10:31] LABS: Hematocrit 27.4 % (42.0-52.0); Hemoglobin 9.2 g/dL (14.0-18.0); Mean Corpuscular HGB CONC 33.6 g/dL (32.0-36.0); Mean Corpuscular Hemoglobin 30.5 pg (27.0-31.0); Mean Corpuscular Volume 90.7 fL (78.0-98.0); Mean Platelet Volume 9.7 fL (7.4-10.4); Platelet Count 248 10x3/uL (130-400); Red Blood Cell (RBC) Count 3.02 mill/uL (4.70-6.10)
[2024-01-27 10:37] LABS: INR-International Normal Ratio 1.2; PTT 28.5 sec (22.9-36.1); Prothrombin Time 15.3 sec (12.0-14.7)
[2024-01-27] MEDS ORDERED: Piperacillin/Tazobactam 4.5 GM VIAL ONE (10:41)
[2024-01-27] MEDS ORDERED: Sodium Chloride 0.9% 100 ML ONE (10:42)
[2024-01-27 10:47] LABS: ALT (SGPT) 20 U/L (8-55); AST (SGOT) 19 U/L (5-34); Albumin 3.5 g/dL (3.4-4.8); Alkaline Phosphatase 100 U/L (40-110); Anion Gap 17 mmol/L (10-20); BUN (Urea Nitrogen) 32 mg/dL (8.4-25.7); Bilirubin, Total 0.6 mg/dL (0.2-1.2); Calc. Creatinine Clearance 0 mL/min (70-130); Calcium 9.6 mg/dL (7.8-10.44); Carbon Dioxide 27 mmol/L (23-31); Chloride 99 mmol/L (98-107); Estimated GFR 88; Glucose 244 mg/dL (80-115); Potassium 3.9 mmol/L (3.5-5.1); Protein, Total 7.5 g/dL (5.8-8.1); Sodium 139 mmol/L (136-145)
[2024-01-27 11:12] LABS: Anisocytosis MODERATE=16-30 cells HPF (0-5); Band 16 % (5-11); Dohle Bodies SLIGHT; Eosinophils 1 % (0-10); Lymphocytes 19 % (21-51); Monocytes 10 % (0-10); Neutrophil 54 % (42-75); Nucleated RBC (Manual Ct) 1 % (0); Platelet Adequacy Comment Platelets Normal; Polychromasia SLIGHT = 2-3 cells HPF (0-2); Vacuoles SLIGHT
[2024-01-27 11:59] LABS: Troponin I Less than 0.010 ng/mL (< 0.028)
[2024-01-27] MEDS ORDERED: methylPREDNISolone Sod Succ/PF 125 MG/2 ML VIAL ONE (12:08)
[2024-01-27] MEDS ORDERED: Magnesium 2 GM/50 ML BAG (IN WATER) ONE (12:08)
[2024-01-27] MEDS ORDERED: Senokot S 8.6-50 MG TAB PO PRN ×2 (13:18→15:00)
[2024-01-27] MEDS ORDERED: Ipratropium/Albuterol 3 ML NEB NEB PRN (13:29)
[2024-01-27 17:19] VITALS: BMI 24.3
[2024-01-27] MEDS: Ipratropium/Albuterol 3 ML NEB NEB SCH (18:14)
[2024-01-27] MEDS: Piperacillin/Tazobactam 3.375 GM in Sodium Chloride 0.9% 100 ML IVPB SCH (18:35)
[2024-01-27] MEDS: Midodrine HCl 5 MG TAB PO SCH (18:36)
[2024-01-27] MEDS: Amiodarone 200 MG TAB PO SCH ×2 (18:38→23:33)
[2024-01-27] MEDS: Vancomycin (BATCH) 2 GM in Premix 1 BAG IVPB SCH (18:39)
[2024-01-27] MEDS: Metoprolol Tartrate 50 MG TAB PO SCH ×2 (18:39→23:35)
[2024-01-27] MEDS: Vancomycin (BATCH) 1.25 GM in Premix 1 BAG IVPB SCH (23:32)
[2024-01-27] MEDS: Apixaban 5 MG TAB PO SCH (23:33)
[2024-01-27] MEDS: HYDROcodone/Acetaminophen 10/325 mg Tablet PO PRN (23:33)
[2024-01-27] MEDS: Atorvastatin Calcium 40 MG TAB PO SCH (23:33)
[2024-01-27] MEDS: guaiFENesin ER 600 MG TAB PO SCH (23:35)
[2024-01-28 04:45] LABS: #Basophils Less than 0.03 10x3/uL (0.0-0.2); #Eosinphils Less than 0.03 10x3/uL (0.0-0.7); %Basophils 0.3 % (0.0-1.0); %Lymphocytes 8.7 % (21.0-51.0); %Monocytes 15.6 % (0.0-10.0); %Neutrophils 74.8 % (42.0-75.0); Hematocrit 26.4 % (42.0-52.0); Hemoglobin 8.8 g/dL (14.0-18.0); Mean Corpuscular HGB CONC 33.3 g/dL (32.0-36.0); Mean Corpuscular Hemoglobin 30.3 pg (27.0-31.0); Mean Platelet Volume 10.3 fL (7.4-10.4); Platelet Count 227 10x3/uL (130-400); RBC Distribution Width 20.5 % (11.5-14.5)
[2024-01-28 04:59] LABS: Vancomycin, Random 29.3 ug/mL (See Comment)
[2024-01-28 05:04] LABS: ALT (SGPT) 20 U/L (8-55); AST (SGOT) 14 U/L (5-34); Albumin 3.1 g/dL (3.4-4.8); Alkaline Phosphatase 93 U/L (40-110); Anion Gap 16 mmol/L (10-20); BUN (Urea Nitrogen) 33 mg/dL (8.4-25.7); Bilirubin, Total 0.6 mg/dL (0.2-1.2); Calc. Creatinine Clearance 120 mL/min (70-130); Carbon Dioxide 22 mmol/L (23-31); Chloride 105 mmol/L (98-107); Estimated GFR 100; Globulin 3.8 g/dL (2.4-3.5); Glucose 175 mg/dL (80-115); Protein, Total 6.9 g/dL (5.8-8.1); Sodium 139 mmol/L (136-145)
[2024-01-28 07:05] VITALS: BMI 24.3
[2024-01-28] MEDS: Saccharomyces boulardii 250 MG CAP PO SCH (08:47)
[2024-01-28] MEDS: predniSONE 20 MG TAB PO SCH (08:47)
[2024-01-28] MEDS: Clopidogrel Bisulfate 75 MG TAB PO SCH (08:48)
[2024-01-28] MEDS: Empagliflozin 25 MG TAB PO SCH (08:48)
[2024-01-28] MEDS: Ferrous Sulfate 325 MG TAB PO SCH (08:48)
[2024-01-28] MEDS: GUAIFENESIN SF SOLN 200 MG/10 ML UDCUP PO SCH (09:58)
[2024-01-29 07:08] LABS: #Basophils Less than 0.03 10x3/uL (0.0-0.2); #Eosinphils Less than 0.03 10x3/uL (0.0-0.7); %Basophils 0.7 % (0.0-1.0); %Eosinophils 0.4 % (0.0-10.0); %Lymphocytes 19.6 % (21.0-51.0); %Monocytes 18.8 % (0.0-10.0); %Neutrophils 59.1 % (42.0-75.0); Hematocrit 27.8 % (42.0-52.0); Hemoglobin 9.1 g/dL (14.0-18.0); Mean Corpuscular HGB CONC 32.7 g/dL (32.0-36.0); Mean Corpuscular Hemoglobin 29.4 pg (27.0-31.0); Mean Platelet Volume 9.8 fL (7.4-10.4); Platelet Count 260 10x3/uL (130-400); RBC Distribution Width 20.3 % (11.5-14.5); Red Blood Cell (RBC) Count 3.09 mill/uL (4.70-6.10)
[2024-01-29 07:25] LABS: Vancomycin, Random 28.8 ug/mL (See Comment)
[2024-01-29 07:27] LABS: ALT (SGPT) 21 U/L (8-55); AST (SGOT) 15 U/L (5-34); Albumin 3.3 g/dL (3.4-4.8); Alkaline Phosphatase 84 U/L (40-110); Anion Gap 14 mmol/L (10-20); BUN (Urea Nitrogen) 38 mg/dL (8.4-25.7); Bilirubin, Total 0.5 mg/dL (0.2-1.2); Calc. Creatinine Clearance 116 mL/min (70-130); Carbon Dioxide 26 mmol/L (23-31); Chloride 106 mmol/L (98-107); Estimated GFR 99; Globulin 3.3 g/dL (2.4-3.5); Glucose 141 mg/dL (80-115); Potassium 3.7 mmol/L (3.5-5.1); Protein, Total 6.6 g/dL (5.8-8.1); Sodium 142 mmol/L (136-145)
[2024-01-29] MEDS ORDERED: Amoxicillin/Potassium Clav 875 MG TAB PO SCH ×3 (11:30→21:00)
[2024-01-29 12:44] VITALS: BP 83/55; TEMP 97.9
[2024-01-29] MEDS: Ipratropium/Albuterol 3 ML NEB NEB SCH (14:07)
== END 2024-01-29 13:44 | disposition home or self-care (01) | DRG 177 ==
LOC: ERS 09:41 → 2NO 15:43
PROVIDERS: ADMIT Student in an Organized Health Care Education/Training Program; ATTEND Student in an Organized Health Care Education/Training Program
DX: J69.0 Pneumonitis due to inhalation of food and vomit (principal); J96.01 Acute respiratory failure with hypoxia; M86.8X7 Other osteomyelitis, ankle and foot; J44.1 Chronic obstructive pulmonary disease with (acute) exacerbation; I48.92 Unspecified atrial flutter; I50.22 Chronic systolic (congestive) heart failure; J44.0 Chronic obstructive pulmonary disease with (acute) lower respiratory infection; E11.69 Type 2 diabetes mellitus with other specified complication; E11.51 Type 2 diabetes mellitus with diabetic peripheral angiopathy without gangrene; E78.5 Hyperlipidemia, unspecified; E66.9 Obesity, unspecified; F17.210 Nicotine dependence, cigarettes, uncomplicated; C14.0 Malignant neoplasm of pharynx, unspecified; J44.9 Chronic obstructive pulmonary disease, unspecified; I48.91 Unspecified atrial fibrillation; I45.10 Unspecified right bundle-branch block; D64.9 Anemia, unspecified; I25.10 Atherosclerotic heart disease of native coronary artery without angina pectoris; I95.9 Hypotension, unspecified; Z89.412 Acquired absence of left great toe; Z89.411 Acquired absence of right great toe; Z89.421 Acquired absence of other right toe(s); Z89.422 Acquired absence of other left toe(s); Z68.24 Body mass index [BMI] 24.0-24.9, adult
CPT/HCPCS: 36415; 36416; 71045; 80053; 80202; 83605; 83880; 84145; 84484; 85025; 85610; 85730; 87040; 87070; 87077; 87081; 87186; 87205; 93005; 94640; 94760; 96365; 96367; 96375; 97139; J1642; J2543; J2930; J3370; J3475; J3490; J7512; J7620

== ENCOUNTER 2024-01-29 14:24 | Inpatient (IN) | payer OTHER ==
[2024-01-29 15:37] LABS: #Basophils Less than 0.03 10x3/uL (0.0-0.2); #Eosinphils Less than 0.03 10x3/uL (0.0-0.7); %Basophils 0.2 % (0.0-1.0); %Lymphocytes 5.2 % (21.0-51.0); %Monocytes 8.2 % (0.0-10.0); %Neutrophils 84.7 % (42.0-75.0); Hematocrit 28.1 % (42.0-52.0); Hemoglobin 9.4 g/dL (14.0-18.0); Mean Corpuscular HGB CONC 33.5 g/dL (32.0-36.0); Mean Corpuscular Hemoglobin 30.4 pg (27.0-31.0); Mean Corpuscular Volume 90.9 fL (78.0-98.0); Platelet Count 328 10x3/uL (130-400); RBC Distribution Width 20.5 % (11.5-14.5); Red Blood Cell (RBC) Count 3.09 mill/uL (4.70-6.10)
[2024-01-29 15:59] LABS: Troponin I Less than 0.010 ng/mL (< 0.028)
[2024-01-29 16:12] LABS: ALT (SGPT) 25 U/L (8-55); AST (SGOT) 19 U/L (5-34); Albumin 3.5 g/dL (3.4-4.8); Alkaline Phosphatase 88 U/L (40-110); Anion Gap 22 mmol/L (10-20); BUN (Urea Nitrogen) 48 mg/dL (8.4-25.7); Bilirubin, Total 0.7 mg/dL (0.2-1.2); Calc. Creatinine Clearance 0 mL/min (70-130); Calcium 9.1 mg/dL (7.8-10.44); Carbon Dioxide 19 mmol/L (23-31); Chloride 103 mmol/L (98-107); Estimated GFR 58; Globulin 3.4 g/dL (2.4-3.5); Glucose 447 mg/dL (80-115); Magnesium 1.5 mg/dL (1.6-2.6); Potassium 4.6 mmol/L (3.5-5.1); Protein, Total 6.9 g/dL (5.8-8.1); Sodium 139 mmol/L (136-145)
[2024-01-29 16:52] LABS: Actual Bicarbonate (HCO3v) 22.9 mEq/L (22-28); Base Excess -0.4 mEq/L (-2.0 to +3.0); Calcium, Ionized (venous) 1.07 mmol/L (1.16-1.32); Chloride (VBG) 106 mmol/L (98-106); Hematocrit-VBG 29 % (42.0-52.0); Hemoglobin (Hb) 9.8 g/dL (13.1-17.2); Sodium 141 mmol/L (133-146); pH (venous) 7.468 (7.32-7.43)
[2024-01-29] MEDS ORDERED: Magnesium 2 GM/50 ML BAG (IN WATER) ONE (17:56)
[2024-01-29] MEDS ORDERED: LevoFLOXacin 750 mg/D5W 150 ml Premix Bag ONE (17:56)
[2024-01-29] MEDS ORDERED: Glucagon 1 MG/ML KIT IM PRN (18:34)
[2024-01-29] MEDS ORDERED: Dextrose 50% Abboject 50 ML SYRINGE SLOW IVP PRN (18:34)
[2024-01-29] MEDS ORDERED: Dextrose 5% in Water 1,000 ML IV PRN (18:34)
[2024-01-29] MEDS ORDERED: Acetaminophen 325 MG TAB PO PRN (18:36)
[2024-01-29] MEDS ORDERED: Acetaminophen 650 MG Suppository PR PRN (18:36)
[2024-01-29] MEDS ORDERED: Ondansetron PF 4 MG/2 ML Vial IVP PRN (18:36)
[2024-01-29 18:47] LABS: Lactic Acid 1.2 mmol/L (0.5-2.2)
[2024-01-29 20:25] LABS: Bacteria/HPF None Seen HPF (None Seen); Bilirubin Negative (Negative); Blood, Urine Negative (Negative); Clarity Clear (Clear); Glucose, Urine (Dipstick) Greater than 1000 mg/dL (Negative); Ketone, Urine Negative (Negative); Leukocyte Negative Leu/uL (Negative); Nitrite Negative (Negative); Protein, Urine (Dipstick) Negative (Neg-Trace); RBC/HPF 0-3 HPF (0-3); Specific Gravity, Urine 1.019 (1.002-1.036); Squamous Epithelial None Seen HPF (0-3); Urobilinogen Normal mg/dL (Less than 2); WBC/HPF None Seen HPF (0-3); pH, Urine 6.5 (5.0-9.0)
[2024-01-29 20:27] LABS: CAUTI Indications for Culture Dysuria,urgency,freq; Urine Culture Reflex Yes Yes
[2024-01-29 21:11] VITALS: BMI 23.6
[2024-01-29] MEDS ORDERED: Ipratropium/Albuterol 3 ML NEB NEB PRN (23:24)
[2024-01-30 05:44] LABS: Hematocrit 32.1 % (42.0-52.0); Hemoglobin 10.2 g/dL (14.0-18.0); Mean Corpuscular HGB CONC 31.8 g/dL (32.0-36.0); Mean Corpuscular Hemoglobin 29.9 pg (27.0-31.0); Mean Corpuscular Volume 94.1 fL (78.0-98.0); Mean Platelet Volume 10.3 fL (7.4-10.4); Platelet Count 230 10x3/uL (130-400); RBC Distribution Width 20.8 % (11.5-14.5); Red Blood Cell (RBC) Count 3.41 mill/uL (4.70-6.10)
[2024-01-30 06:18] LABS: ALT (SGPT) 19 U/L (8-55); AST (SGOT) 23 U/L (5-34); Albumin 3.2 g/dL (3.4-4.8); Alkaline Phosphatase 83 U/L (40-110); Anion Gap 19 mmol/L (10-20); BUN (Urea Nitrogen) 39 mg/dL (8.4-25.7); Bilirubin, Total 0.4 mg/dL (0.2-1.2); Calc. Creatinine Clearance 112 mL/min (70-130); Carbon Dioxide 15 mmol/L (23-31); Chloride 111 mmol/L (98-107); Estimated GFR 99; Globulin 3.8 g/dL (2.4-3.5); Glucose 111 mg/dL (80-115); Sodium 141 mmol/L (136-145)
[2024-01-30 06:20] LABS: Anisocytosis MODERATE=16-30 cells HPF (0-5); Band 7 % (5-11); Eosinophils 2 % (0-10); Large Platelets 6.5 % (0-5); Lymphocytes 24 % (21-51); Macrocytosis SLIGHT = 6-15 cells HPF (0-5); Monocytes 15 % (0-10); Neutrophil 52 % (42-75); Ovalocytes SLIGHT = 2-5 cells HPF (0-1); Platelet Adequacy Comment Platelets Normal; Polychromasia MODERATE = 3-4 cells HPF (0-2); Smudge Cells 8.7 %
[2024-01-30] MEDS: Ferrous Sulfate 325 MG TAB PO SCH (10:33)
[2024-01-30] MEDS: Amiodarone 200 MG TAB PO SCH (10:33)
[2024-01-30] MEDS: Empagliflozin 25 MG TAB PO SCH (10:33)
[2024-01-30] MEDS: Saccharomyces boulardii 250 MG CAP PO SCH (10:33)
[2024-01-30] MEDS: Metoprolol Tartrate 50 MG TAB PO SCH (10:33)
[2024-01-30] MEDS: Apixaban 5 MG TAB PO SCH (10:33)
[2024-01-30] MEDS: Midodrine HCl 5 MG TAB PO SCH (10:34)
[2024-01-30] MEDS: Clopidogrel Bisulfate 75 MG TAB PO SCH (10:34)
[2024-01-30] MEDS: predniSONE 20 MG TAB PO SCH (10:34)
[2024-01-30] MEDS: Pantoprazole DR 40 MG TAB PO SCH (10:34)
[2024-01-30] MEDS: HYDROcodone/Acetaminophen 10/325 mg Tablet PO PRN (10:36)
[2024-01-30] MEDS: LevoFLOXacin 750 mg/D5W 750 MG in Premix 1 BAG IVPB SCH (17:28)
[2024-01-30] MEDS: HumaLOG 300 UNITS/3 ML VIAL SC PRN (17:28)
[2024-01-30] MEDS: Atorvastatin Calcium 40 MG TAB PO SCH (21:24)
[2024-01-31 06:11] LABS: Hematocrit 28.6 % (42.0-52.0); Hemoglobin 9.3 g/dL (14.0-18.0); Mean Corpuscular HGB CONC 32.5 g/dL (32.0-36.0); Mean Corpuscular Hemoglobin 29.2 pg (27.0-31.0); Mean Corpuscular Volume 89.7 fL (78.0-98.0); Mean Platelet Volume 9.5 fL (7.4-10.4); Platelet Count 250 10x3/uL (130-400); RBC Distribution Width 20.5 % (11.5-14.5); Red Blood Cell (RBC) Count 3.19 mill/uL (4.70-6.10)
[2024-01-31 06:26] LABS: ALT (SGPT) 17 U/L (8-55); AST (SGOT) 18 U/L (5-34); Albumin 3.2 g/dL (3.4-4.8); Alkaline Phosphatase 80 U/L (40-110); Anion Gap 12 mmol/L (10-20); BUN (Urea Nitrogen) 38 mg/dL (8.4-25.7); Bilirubin, Total 0.3 mg/dL (0.2-1.2); Calc. Creatinine Clearance 108 mL/min (70-130); Calcium 9.4 mg/dL (7.8-10.44); Carbon Dioxide 27 mmol/L (23-31); Chloride 106 mmol/L (98-107); Estimated GFR 98; Globulin 3.7 g/dL (2.4-3.5); Glucose 123 mg/dL (80-115); Potassium 4.1 mmol/L (3.5-5.1); Protein, Total 6.9 g/dL (5.8-8.1)
[2024-01-31 06:39] LABS: Band 9 % (5-11); Hypochromia SLIGHT = 6-15 cells HPF (0-5); Large Platelets 3.9 % (0-5); Lymphocytes 16 % (21-51); Monocytes 17 % (0-10); Neutrophil 58 % (42-75); Platelet Adequacy Comment Platelets Normal; Polychromasia SLIGHT = 2-3 cells HPF (0-2); Promyelocytes 1 % (0-0)
[2024-01-31 06:42] LABS: Sodium 141 mmol/L (136-145)
[2024-01-31] MEDS: Polyethylene Glycol 3350 17 GM Packet PER TUBE SCH (14:49)
[2024-01-31] MEDS: HumaLOG 300 UNITS/3 ML VIAL SC PRN (21:51)
[2024-02-01 04:47] LABS: Hematocrit 30.6 % (42.0-52.0); Hemoglobin 10.1 g/dL (14.0-18.0); Mean Corpuscular Hemoglobin 29.7 pg (27.0-31.0); Mean Platelet Volume 9.5 fL (7.4-10.4); Platelet Count 234 10x3/uL (130-400); RBC Distribution Width 20.7 % (11.5-14.5)
[2024-02-01 05:00] LABS: ALT (SGPT) 18 U/L (8-55); AST (SGOT) 17 U/L (5-34); Albumin 3.4 g/dL (3.4-4.8); Alkaline Phosphatase 77 U/L (40-110); Anion Gap 15 mmol/L (10-20); BUN (Urea Nitrogen) 43 mg/dL (8.4-25.7); Bilirubin, Total 0.4 mg/dL (0.2-1.2); Calc. Creatinine Clearance 111 mL/min (70-130); Calcium 9.4 mg/dL (7.8-10.44); Carbon Dioxide 22 mmol/L (23-31); Chloride 104 mmol/L (98-107); Estimated GFR 98; Globulin 3.5 g/dL (2.4-3.5); Glucose 122 mg/dL (80-115); Potassium 3.5 mmol/L (3.5-5.1); Protein, Total 6.9 g/dL (5.8-8.1); Sodium 137 mmol/L (136-145)
[2024-02-01 05:12] LABS: Band 8 % (5-11); Eosinophils 1 % (0-10); Hypochromia SLIGHT = 6-15 cells HPF (0-5); Lymphocytes 18 % (21-51); Monocytes 15 % (0-10); Neutrophil 56 % (42-75); Nucleated RBC (Manual Ct) 1 % (0); Platelet Adequacy Comment Platelets Normal; Polychromasia MODERATE = 3-4 cells HPF (0-2); Reactive Lymphocytes 2 % (0-10)
[2024-02-01] MEDS ORDERED: Lidocaine 1% PF 5 ML VIAL ONE (08:22)
[2024-02-01] MEDS ORDERED: PROPOFOL 200 MG/20 ML VIAL ONE (08:22)
[2024-02-01] MEDS: Polyethylene Glycol 3350 17 GM Packet PER TUBE SCH (09:47)
[2024-02-01] MEDS ORDERED: PHENYLEPHRINE-NS 100 MCG/ML 10 ML SYRINGE ONE (09:57)
[2024-02-01] MEDS ORDERED: Sodium Chloride 0.9% 250 ML 0 ML ONE (10:36)
[2024-02-01] MEDS ORDERED: Phenylephrine 10 MG/ML VIAL ONE (10:36)
[2024-02-01 16:26] VITALS: BMI 23.6
[2024-02-02 05:24] LABS: ALT (SGPT) 24 U/L (8-55); AST (SGOT) 22 U/L (5-34); Albumin 3.4 g/dL (3.4-4.8); Alkaline Phosphatase 78 U/L (40-110); Anion Gap 16 mmol/L (10-20); BUN (Urea Nitrogen) 40 mg/dL (8.4-25.7); Bilirubin, Total 0.4 mg/dL (0.2-1.2); Calc. Creatinine Clearance 92 mL/min (70-130); Calcium 9.1 mg/dL (7.8-10.44); Carbon Dioxide 26 mmol/L (23-31); Chloride 106 mmol/L (98-107); Estimated GFR 81; Globulin 3.4 g/dL (2.4-3.5); Glucose 156 mg/dL (80-115); Potassium 4.2 mmol/L (3.5-5.1); Protein, Total 6.8 g/dL (5.8-8.1); Sodium 144 mmol/L (136-145)
[2024-02-02 05:41] LABS: Anisocytosis SLIGHT = 6-15 cells HPF (0-5); Band 11 % (5-11); Lymphocytes 4 % (21-51); Monocytes 7 % (0-10); Neutrophil 78 % (42-75); Nucleated RBC (Manual Ct) 1 % (0); Platelet Adequacy Comment Platelets Normal; Polychromasia SLIGHT = 2-3 cells HPF (0-2)
[2024-02-02 05:53] LABS: Hematocrit 26.5 % (42.0-52.0); Hemoglobin 8.8 g/dL (14.0-18.0); Mean Corpuscular HGB CONC 33.2 g/dL (32.0-36.0); Mean Corpuscular Hemoglobin 30.2 pg (27.0-31.0); Mean Corpuscular Volume 91.1 fL (78.0-98.0); Mean Platelet Volume 9.9 fL (7.4-10.4); Platelet Count 221 10x3/uL (130-400); RBC Distribution Width 21.4 % (11.5-14.5); Red Blood Cell (RBC) Count 2.91 mill/uL (4.70-6.10)
[2024-02-02] MEDS: Amiodarone 200 MG TAB PO SCH (09:04)
[2024-02-02 11:40] LABS: Magnesium 1.7 mg/dL (1.6-2.6); Phosphorus 4.2 mg/dL (2.3-4.7)
[2024-02-02] MEDS: Magnesium 2 GM/50 ML(in water) 2 GM in Premix 1 BAG IVPB SCH (13:48)
[2024-02-03 04:46] LABS: Hematocrit 25.6 % (42.0-52.0); Hemoglobin 8.4 g/dL (14.0-18.0); Mean Corpuscular HGB CONC 32.8 g/dL (32.0-36.0); Mean Corpuscular Hemoglobin 30.5 pg (27.0-31.0); Mean Corpuscular Volume 93.1 fL (78.0-98.0); Mean Platelet Volume 9.8 fL (7.4-10.4); Platelet Count 208 10x3/uL (130-400); RBC Distribution Width 21.9 % (11.5-14.5); Red Blood Cell (RBC) Count 2.75 mill/uL (4.70-6.10)
[2024-02-03 05:15] LABS: ALT (SGPT) 20 U/L (8-55); AST (SGOT) 23 U/L (5-34); Albumin 3.2 g/dL (3.4-4.8); Alkaline Phosphatase 80 U/L (40-110); Anion Gap 13 mmol/L (10-20); BUN (Urea Nitrogen) 30 mg/dL (8.4-25.7); Bilirubin, Total 0.5 mg/dL (0.2-1.2); Calc. Creatinine Clearance 108 mL/min (70-130); Calcium 9.1 mg/dL (7.8-10.44); Carbon Dioxide 28 mmol/L (23-31); Chloride 106 mmol/L (98-107); Estimated GFR 98; Globulin 3.5 g/dL (2.4-3.5); Glucose 126 mg/dL (80-115); Potassium 3.9 mmol/L (3.5-5.1); Protein, Total 6.7 g/dL (5.8-8.1); Sodium 143 mmol/L (136-145)
[2024-02-03 06:08] LABS: Anisocytosis SLIGHT = 6-15 cells HPF (0-5); Band 3 % (5-11); Eosinophils 3 % (0-10); Lymphocytes 3 % (21-51); Macrocytosis SLIGHT = 6-15 cells HPF (0-5); Monocytes 9 % (0-10); Neutrophil 82 % (42-75); Platelet Adequacy Comment Platelets Normal; Polychromasia SLIGHT = 2-3 cells HPF (0-2)
[2024-02-03 12:06] VITALS: BP 131/72; TEMP 97.5
== END 2024-02-03 16:16 | disposition home or self-care (01) | DRG 682 ==
LOC: ERS 14:24 → 2NO 18:34 → OBSVTOIN 01-31 09:00
PROVIDERS: ADMIT Family Medicine; ATTEND Family Medicine
PROC: 5A2204Z Restoration of Cardiac Rhythm, Single (ICD-10-PCS; principal; 2024-02-01)
DX: N17.9 Acute kidney failure, unspecified (principal); J69.0 Pneumonitis due to inhalation of food and vomit; J96.01 Acute respiratory failure with hypoxia; E87.20 Acidosis, unspecified; D61.9 Aplastic anemia, unspecified; I50.22 Chronic systolic (congestive) heart failure; I48.92 Unspecified atrial flutter; I95.1 Orthostatic hypotension; E86.0 Dehydration; J44.9 Chronic obstructive pulmonary disease, unspecified; E78.5 Hyperlipidemia, unspecified; I11.0 Hypertensive heart disease with heart failure; E11.51 Type 2 diabetes mellitus with diabetic peripheral angiopathy without gangrene; I48.91 Unspecified atrial fibrillation; E66.9 Obesity, unspecified; F17.210 Nicotine dependence, cigarettes, uncomplicated; I25.10 Atherosclerotic heart disease of native coronary artery without angina pectoris; Z89.422 Acquired absence of other left toe(s); Z85.21 Personal history of malignant neoplasm of larynx; Z93.0 Tracheostomy status; Z86.711 Personal history of pulmonary embolism; Z68.23 Body mass index [BMI] 23.0-23.9, adult; Z86.718 Personal history of other venous thrombosis and embolism; Z79.01 Long term (current) use of anticoagulants; Z89.421 Acquired absence of other right toe(s); Z79.02 Long term (current) use of antithrombotics/antiplatelets; Z79.899 Other long term (current) drug therapy; Z79.52 Long term (current) use of systemic steroids; Z95.5 Presence of coronary angioplasty implant and graft; Z92.21 Personal history of antineoplastic chemotherapy; E11.65 Type 2 diabetes mellitus with hyperglycemia
CPT/HCPCS: 36415; 36416; 71045; 80053; 81001; 82010; 82805; 83605; 83735; 84100; 84484; 85025; 87040; 87086; 92960; 93005; 93010; 96374; 97139; J1815; J1956; J2371; J2704; J3475; J7050; J7512

== ENCOUNTER 2025-05-15 10:19 | Inpatient (IN) | payer OTHER ==
[2025-05-15] MEDS ORDERED: Cefepime 2 GM VIAL ONE (11:05)
[2025-05-15] MEDS ORDERED: Droperidol 5 MG/2 ML VIAL ONE (11:33)
[2025-05-15 11:42] LABS: #Basophils 0.05 10x3/uL (0.0-0.2); #Eosinophils 0.12 10x3/uL (0.0-0.7); #Monocytes 0.73 10x3/uL (0.11-0.59); #Neutrophils 4.71 10x3/uL (1.40-6.50); %Basophils 0.8 % (0.0-1.0); %Eosinophils 1.9 % (0.0-10.0); %Lymphocytes 11.1 % (21.0-51.0); %Monocytes 11.5 % (0.0-10.0); %Neutrophils 74.4 % (42.0-75.0); Hematocrit 41.0 % (42.0-52.0); Hemoglobin 13.8 g/dL (14.0-18.0); Mean Corpuscular Hemoglobin 32.8 pg (27.0-31.0); Mean Corpuscular Volume 97.4 fL (78.0-98.0); Platelet Count 326 10x3/uL (130-400); Red Blood Cell (RBC) Count 4.21 mill/uL (4.70-6.10); White Blood Cell (WBC) Count 6.33 10x3/uL (4.8-10.8)
[2025-05-15 11:53] LABS: Actual Bicarbonate (HCO3v) 24.3 mEq/L (22-28); Base Excess -0.5 mEq/L (-2.0 to +3.0); Chloride (VBG) 100 mmol/L (98-106); Hematocrit-VBG 44 % (42.0-52.0); Hemoglobin (Hb) 14.9 g/dL (13.1-17.2); Potassium (VBG) 3.95 mmol/L (3.70-5.30); Sodium 136 mmol/L (133-146)
[2025-05-15 11:55] LABS: Calcium, Ionized (venous) 1.70 mmol/L (1.16-1.32)
[2025-05-15 12:12] LABS: INR-International Normal Ratio 1.2; Prothrombin Time 15.6 sec (12.0-14.7)
[2025-05-15 12:13] LABS: PTT 35.2 sec (22.9-36.1)
[2025-05-15 12:19] LABS: ALT (SGPT) 8 U/L (Less than 45); AST (SGOT) 38 U/L (11-34); Albumin 3.4 g/dL (3.1-4.5); Alkaline Phosphatase 105 U/L (40-110); Anion Gap 16 mmol/L (10-20); BUN (Urea Nitrogen) 16 mg/dL (8.4-25.7); Bilirubin, Total 0.5 mg/dL (0.3-1.2); Calc. Creatinine Clearance 0 mL/min (70-130); Calcium 14.1 mg/dL (7.8-10.44); Carbon Dioxide 26 mmol/L (23-31); Chloride 98 mmol/L (98-107); Globulin 4.0 g/dL (2.4-3.5); Glucose 95 mg/dL (80-115); Lipase 7 U/L (8-78); Potassium 3.8 mmol/L (3.5-5.1); Sodium 136 mmol/L (136-145)
[2025-05-15 13:29] LABS: Magnesium 1.4 mg/dL (1.6-2.6)
[2025-05-15 14:21] LABS: Bacteria/HPF None Seen HPF (None Seen); CAUTI Indications for Culture Pelvic or flank pain; Glucose, Urine (Dipstick) Greater than 1000 mg/dL (Negative); Leukocyte Negative Leu/uL (Negative); Protein, Urine (Dipstick) Negative (Neg-Trace); Specific Gravity, Urine 1.036 (1.002-1.036); WBC/HPF 0-3 HPF (0-3)
[2025-05-15 14:23] LABS: Urine Culture Reflex No No
[2025-05-15] MEDS ORDERED: Magnesium 2 GM/50 ML BAG (IN WATER) ONE (15:43)
[2025-05-15] MEDS ORDERED: Iopamidol-370 76% 500 ML MDV (1 ML CHARGE) ONE (15:48)
[2025-05-15] MEDS ORDERED: Acetaminophen 325 MG TAB PO PRN (16:32)
[2025-05-15] MEDS: Calcitonin,Salmon,Synthetic 400 UNITS/2 ML SC SCH (20:13)
[2025-05-15 20:40] VITALS: BMI 26.5
[2025-05-15] MEDS: Apixaban 5 MG TAB PO SCH (20:40)
[2025-05-16 04:54] LABS: #Basophils 0.03 10x3/uL (0.0-0.2); #Eosinophils 0.16 10x3/uL (0.0-0.7); #Monocytes 0.52 10x3/uL (0.11-0.59); #Neutrophils 3.67 10x3/uL (1.40-6.50); %Basophils 0.6 % (0.0-1.0); %Eosinophils 3.3 % (0.0-10.0); %Lymphocytes 10.2 % (21.0-51.0); %Monocytes 10.6 % (0.0-10.0); %Neutrophils 74.9 % (42.0-75.0); Hematocrit 37.9 % (42.0-52.0); Hemoglobin 12.4 g/dL (14.0-18.0); Mean Corpuscular Hemoglobin 32.6 pg (27.0-31.0); Mean Corpuscular Volume 99.7 fL (78.0-98.0); Platelet Count 272 10x3/uL (130-400); Red Blood Cell (RBC) Count 3.80 mill/uL (4.70-6.10); White Blood Cell (WBC) Count 4.90 10x3/uL (4.8-10.8)
[2025-05-16 05:19] LABS: ALT (SGPT) Less than 7 U/L (Less than 45); AST (SGOT) 20 U/L (11-34); Albumin 2.9 g/dL (3.1-4.5); Alkaline Phosphatase 87 U/L (40-110); Anion Gap 14 mmol/L (10-20); BUN (Urea Nitrogen) 10 mg/dL (8.4-25.7); Bilirubin, Total 0.4 mg/dL (0.3-1.2); Calc. Creatinine Clearance 153 mL/min (70-130); Calcium 10.9 mg/dL (7.8-10.44); Carbon Dioxide 23 mmol/L (23-31); Chloride 105 mmol/L (98-107); Globulin 3.4 g/dL (2.4-3.5); Glucose 66 mg/dL (80-115); Magnesium 1.4 mg/dL (1.6-2.6); Potassium 3.7 mmol/L (3.5-5.1); Sodium 138 mmol/L (136-145)
[2025-05-16] MEDS: Pantoprazole 40 MG VIAL IVP SCH (09:03)
[2025-05-16] MEDS: Magnesium Sulfate In Water 4 GM in Premix 1 BAG IVPB SCH (09:03)
[2025-05-16 12:09] LABS: Fluid, pH - Pleural Fld Greater than 7.500 (7.60 - 7.66)
[2025-05-16 12:30] LABS: Fluid, Triglycerides 60 mg/dL (Not Available); Pleural Fluid, Amylase Less than 30 U/L (Not Available); Pleural Fluid, Glucose 45 mg/dL; Pleural Fluid, LDH 1014 U/L (Not Available); Pleural Fluid, Protein 4.7 g/dL
[2025-05-16 12:38] LABS: RBC Count-Automated (BF) 98004 /cu.mm; WBC/Nucleated-Auto (BF) 1067 /cu.mm
[2025-05-16] MEDS: Multivit, Therapeutic 1 TAB PO SCH (13:34)
[2025-05-16] MEDS: Folic Acid 1 MG TAB PO SCH (13:34)
[2025-05-16 14:02] LABS: BF Segmented Neutrophils 9 %; Cell Count Non Hematic 22 %
[2025-05-16 15:30] VITALS: BMI 26.5
[2025-05-16] MEDS: Enoxaparin 100 MG (1 mL) SYRINGE SC SCH (21:31)
[2025-05-17 05:07] LABS: #Basophils 0.03 10x3/uL (0.0-0.2); #Eosinophils 0.18 10x3/uL (0.0-0.7); #Monocytes 0.35 10x3/uL (0.11-0.59); #Neutrophils 4.08 10x3/uL (1.40-6.50); %Basophils 0.6 % (0.0-1.0); %Eosinophils 3.6 % (0.0-10.0); %Lymphocytes 6.4 % (21.0-51.0); %Monocytes 7.0 % (0.0-10.0); %Neutrophils 82.0 % (42.0-75.0); Hematocrit 38.5 % (42.0-52.0); Hemoglobin 12.8 g/dL (14.0-18.0); Mean Corpuscular Hemoglobin 32.2 pg (27.0-31.0); Mean Corpuscular Volume 97.0 fL (78.0-98.0); Platelet Count 287 10x3/uL (130-400); Red Blood Cell (RBC) Count 3.97 mill/uL (4.70-6.10); White Blood Cell (WBC) Count 4.98 10x3/uL (4.8-10.8)
[2025-05-17 05:27] LABS: ALT (SGPT) Less than 7 U/L (Less than 45); AST (SGOT) 17 U/L (11-34); Albumin 2.8 g/dL (3.1-4.5); Alkaline Phosphatase 82 U/L (40-110); Anion Gap 12 mmol/L (10-20); BUN (Urea Nitrogen) 7 mg/dL (8.4-25.7); Bilirubin, Total 0.5 mg/dL (0.3-1.2); Calc. Creatinine Clearance 151 mL/min (70-130); Calcium 10.4 mg/dL (7.8-10.44); Carbon Dioxide 24 mmol/L (23-31); Chloride 101 mmol/L (98-107); Globulin 3.5 g/dL (2.4-3.5); Glucose 80 mg/dL (80-115); Potassium 3.5 mmol/L (3.5-5.1); Sodium 133 mmol/L (136-145)
[2025-05-17] MEDS: Ketorolac Tromethamine 30 MG (1 mL) VIAL IVP SCH (10:43)
[2025-05-17 10:52] LABS: Magnesium 1.5 mg/dL (1.6-2.6)
[2025-05-17] MEDS: Magnesium 2 GM/50 ML(in water) 2 GM in Premix 1 BAG IVPB SCH (15:28)
[2025-05-17] MEDS: HYDROcodone/Acetaminophen 10/325 mg Tablet PO PRN (15:36)
[2025-05-17 16:40] LABS: Reference Lab Name LABCORP
[2025-05-18 04:32] LABS: #Basophils 0.03 10x3/uL (0.0-0.2); #Eosinophils 0.17 10x3/uL (0.0-0.7); #Monocytes 0.38 10x3/uL (0.11-0.59); #Neutrophils 3.12 10x3/uL (1.40-6.50); %Basophils 0.7 % (0.0-1.0); %Eosinophils 4.2 % (0.0-10.0); %Lymphocytes 8.4 % (21.0-51.0); %Monocytes 9.4 % (0.0-10.0); %Neutrophils 76.8 % (42.0-75.0); Hematocrit 34.7 % (42.0-52.0); Hemoglobin 11.7 g/dL (14.0-18.0); Mean Corpuscular Hemoglobin 32.2 pg (27.0-31.0); Mean Corpuscular Volume 95.6 fL (78.0-98.0); Platelet Count 269 10x3/uL (130-400); Red Blood Cell (RBC) Count 3.63 mill/uL (4.70-6.10); White Blood Cell (WBC) Count 4.06 10x3/uL (4.8-10.8)
[2025-05-18 04:50] LABS: ALT (SGPT) Less than 7 U/L (Less than 45); AST (SGOT) 21 U/L (11-34); Albumin 2.6 g/dL (3.1-4.5); Alkaline Phosphatase 76 U/L (40-110); Anion Gap 12 mmol/L (10-20); BUN (Urea Nitrogen) 11 mg/dL (8.4-25.7); Bilirubin, Total 0.4 mg/dL (0.3-1.2); Calc. Creatinine Clearance 153 mL/min (70-130); Calcium 9.9 mg/dL (7.8-10.44); Carbon Dioxide 25 mmol/L (23-31); Chloride 100 mmol/L (98-107); Globulin 3.2 g/dL (2.4-3.5); Glucose 122 mg/dL (80-115); Potassium 3.6 mmol/L (3.5-5.1); Sodium 133 mmol/L (136-145)
[2025-05-18] MEDS: Pantoprazole 40 MG DR.TAB PO SCH (08:57)
[2025-05-18 09:07] LABS: Magnesium 1.6 mg/dL (1.6-2.6)
[2025-05-18] MEDS: Prochlorperazine 10 MG/2 ML VIAL SLOW IVP SCH (12:13)
[2025-05-18] MEDS: Magnesium 2 GM/50 ML(in water) 2 GM in Premix 1 BAG IVPB SCH (12:15)
[2025-05-18] MEDS: Thiamine 100 MG TAB PO SCH (20:31)
[2025-05-19 04:35] LABS: #Basophils 0.04 10x3/uL (0.0-0.2); #Eosinophils 0.14 10x3/uL (0.0-0.7); #Monocytes 0.60 10x3/uL (0.11-0.59); #Neutrophils 2.32 10x3/uL (1.40-6.50); %Basophils 1.1 % (0.0-1.0); %Eosinophils 3.8 % (0.0-10.0); %Lymphocytes 16.1 % (21.0-51.0); %Monocytes 16.1 % (0.0-10.0); %Neutrophils 62.1 % (42.0-75.0); Hematocrit 37.5 % (42.0-52.0); Hemoglobin 12.1 g/dL (14.0-18.0); Mean Corpuscular Hemoglobin 31.6 pg (27.0-31.0); Mean Corpuscular Volume 97.9 fL (78.0-98.0); Platelet Count 251 10x3/uL (130-400); Red Blood Cell (RBC) Count 3.83 mill/uL (4.70-6.10); White Blood Cell (WBC) Count 3.73 10x3/uL (4.8-10.8)
[2025-05-19 05:02] LABS: ALT (SGPT) Less than 7 U/L (Less than 45); AST (SGOT) 20 U/L (11-34); Albumin 2.7 g/dL (3.1-4.5); Alkaline Phosphatase 84 U/L (40-110); Anion Gap 11 mmol/L (10-20); BUN (Urea Nitrogen) 9 mg/dL (8.4-25.7); Bilirubin, Total 0.4 mg/dL (0.3-1.2); Calc. Creatinine Clearance 165 mL/min (70-130); Calcium 10.2 mg/dL (7.8-10.44); Carbon Dioxide 24 mmol/L (23-31); Chloride 101 mmol/L (98-107); Globulin 3.6 g/dL (2.4-3.5); Glucose 81 mg/dL (80-115); Magnesium 1.7 mg/dL (1.6-2.6); Potassium 3.7 mmol/L (3.5-5.1); Sodium 132 mmol/L (136-145)
[2025-05-19] MEDS: Magnesium 2 GM/50 ML(in water) 2 GM in Premix 1 BAG IVPB SCH (10:44)
[2025-05-19] MEDS: Cyclobenzaprine 10 MG TAB PO PRN (19:10)
[2025-05-20 04:45] LABS: #Basophils 0.04 10x3/uL (0.0-0.2); #Eosinophils 0.16 10x3/uL (0.0-0.7); #Monocytes 0.62 10x3/uL (0.11-0.59); #Neutrophils 3.08 10x3/uL (1.40-6.50); %Basophils 0.9 % (0.0-1.0); %Eosinophils 3.4 % (0.0-10.0); %Lymphocytes 15.9 % (21.0-51.0); %Monocytes 13.3 % (0.0-10.0); %Neutrophils 66.3 % (42.0-75.0); Hematocrit 34.4 % (42.0-52.0); Hemoglobin 11.3 g/dL (14.0-18.0); Mean Corpuscular Hemoglobin 31.8 pg (27.0-31.0); Mean Corpuscular Volume 96.9 fL (78.0-98.0); Platelet Count 283 10x3/uL (130-400); Red Blood Cell (RBC) Count 3.55 mill/uL (4.70-6.10); White Blood Cell (WBC) Count 4.65 10x3/uL (4.8-10.8)
[2025-05-20 05:09] LABS: Magnesium 1.8 mg/dL (1.6-2.6)
[2025-05-20 05:38] LABS: Albumin 2.8 g/dL (3.1-4.5); Alkaline Phosphatase 84 U/L (40-110); Anion Gap 11 mmol/L (10-20); BUN (Urea Nitrogen) 11 mg/dL (8.4-25.7); Bilirubin, Total 0.4 mg/dL (0.3-1.2); Calc. Creatinine Clearance 141 mL/min (70-130); Calcium 10.3 mg/dL (7.8-10.44); Carbon Dioxide 25 mmol/L (23-31); Chloride 100 mmol/L (98-107); Globulin 3.5 g/dL (2.4-3.5); Glucose 77 mg/dL (80-115); Potassium 3.8 mmol/L (3.5-5.1); Sodium 132 mmol/L (136-145)
[2025-05-20 05:39] LABS: ALT (SGPT) Less than 7 U/L (Less than 45); AST (SGOT) 23 U/L (11-34)
[2025-05-20] MEDS: Magnesium 2 GM/50 ML(in water) 2 GM in Premix 1 BAG IVPB SCH (09:16)
[2025-05-21 05:07] LABS: #Basophils 0.04 10x3/uL (0.0-0.2); #Eosinophils 0.11 10x3/uL (0.0-0.7); #Monocytes 0.46 10x3/uL (0.11-0.59); #Neutrophils 2.29 10x3/uL (1.40-6.50); %Basophils 1.2 % (0.0-1.0); %Eosinophils 3.3 % (0.0-10.0); %Lymphocytes 13.1 % (21.0-51.0); %Monocytes 13.7 % (0.0-10.0); %Neutrophils 68.1 % (42.0-75.0); Hematocrit 31.2 % (42.0-52.0); Hemoglobin 10.3 g/dL (14.0-18.0); Mean Corpuscular Hemoglobin 31.8 pg (27.0-31.0); Mean Corpuscular Volume 96.3 fL (78.0-98.0); Platelet Count 269 10x3/uL (130-400); Red Blood Cell (RBC) Count 3.24 mill/uL (4.70-6.10); White Blood Cell (WBC) Count 3.36 10x3/uL (4.8-10.8)
[2025-05-21 05:23] LABS: ALT (SGPT) 7 U/L (Less than 45); AST (SGOT) 21 U/L (11-34); Albumin 2.6 g/dL (3.1-4.5); Alkaline Phosphatase 76 U/L (40-110); Anion Gap 10 mmol/L (10-20); BUN (Urea Nitrogen) 11 mg/dL (8.4-25.7); Bilirubin, Total 0.3 mg/dL (0.3-1.2); Calc. Creatinine Clearance 182 mL/min (70-130); Calcium 9.9 mg/dL (7.8-10.44); Carbon Dioxide 24 mmol/L (23-31); Chloride 101 mmol/L (98-107); Globulin 3.4 g/dL (2.4-3.5); Glucose 73 mg/dL (80-115); Potassium 3.4 mmol/L (3.5-5.1); Sodium 132 mmol/L (136-145)
[2025-05-22 05:39] LABS: #Basophils 0.03 10x3/uL (0.0-0.2); #Eosinophils 0.09 10x3/uL (0.0-0.7); #Monocytes 0.52 10x3/uL (0.11-0.59); #Neutrophils 2.90 10x3/uL (1.40-6.50); %Basophils 0.7 % (0.0-1.0); %Eosinophils 2.2 % (0.0-10.0); %Lymphocytes 11.9 % (21.0-51.0); %Monocytes 12.9 % (0.0-10.0); %Neutrophils 71.8 % (42.0-75.0); Hematocrit 31.4 % (42.0-52.0); Hemoglobin 10.1 g/dL (14.0-18.0); Mean Corpuscular Hemoglobin 31.3 pg (27.0-31.0); Mean Corpuscular Volume 97.2 fL (78.0-98.0); Platelet Count 299 10x3/uL (130-400); Red Blood Cell (RBC) Count 3.23 mill/uL (4.70-6.10); White Blood Cell (WBC) Count 4.04 10x3/uL (4.8-10.8)
[2025-05-22 05:56] LABS: ALT (SGPT) 9 U/L (Less than 45); AST (SGOT) 29 U/L (11-34); Albumin 2.7 g/dL (3.1-4.5); Anion Gap 11 mmol/L (10-20); BUN (Urea Nitrogen) 9 mg/dL (8.4-25.7); Bilirubin, Total 0.4 mg/dL (0.3-1.2); Calc. Creatinine Clearance 165 mL/min (70-130); Calcium 10.8 mg/dL (7.8-10.44); Carbon Dioxide 23 mmol/L (23-31); Chloride 101 mmol/L (98-107); Globulin 3.6 g/dL (2.4-3.5); Glucose 77 mg/dL (80-115); Potassium 3.6 mmol/L (3.5-5.1); Sodium 131 mmol/L (136-145)
[2025-05-22 06:06] LABS: Alkaline Phosphatase 76 U/L (40-110)
[2025-05-22] MEDS: Diclofenac 1% 50 GM TOPICAL GEL TP SCH ×2 (11:27→13:15)
[2025-05-23 05:13] LABS: #Basophils 0.03 10x3/uL (0.0-0.2); #Eosinophils 0.13 10x3/uL (0.0-0.7); #Monocytes 0.53 10x3/uL (0.11-0.59); #Neutrophils 2.91 10x3/uL (1.40-6.50); %Basophils 0.7 % (0.0-1.0); %Eosinophils 3.2 % (0.0-10.0); %Lymphocytes 10.2 % (21.0-51.0); %Monocytes 13.2 % (0.0-10.0); %Neutrophils 72.5 % (42.0-75.0); Hematocrit 31.9 % (42.0-52.0); Hemoglobin 10.4 g/dL (14.0-18.0); Mean Corpuscular Hemoglobin 31.4 pg (27.0-31.0); Mean Corpuscular Volume 96.4 fL (78.0-98.0); Platelet Count 292 10x3/uL (130-400); Red Blood Cell (RBC) Count 3.31 mill/uL (4.70-6.10); White Blood Cell (WBC) Count 4.02 10x3/uL (4.8-10.8)
[2025-05-23 05:38] LABS: ALT (SGPT) 11 U/L (Less than 45); AST (SGOT) 29 U/L (11-34); Albumin 2.8 g/dL (3.1-4.5); Alkaline Phosphatase 73 U/L (40-110); Anion Gap 12 mmol/L (10-20); BUN (Urea Nitrogen) 10 mg/dL (8.4-25.7); Bilirubin, Total 0.3 mg/dL (0.3-1.2); Calc. Creatinine Clearance 171 mL/min (70-130); Calcium 11.7 mg/dL (7.8-10.44); Carbon Dioxide 23 mmol/L (23-31); Chloride 101 mmol/L (98-107); Globulin 3.6 g/dL (2.4-3.5); Glucose 83 mg/dL (80-115); Potassium 3.7 mmol/L (3.5-5.1); Sodium 132 mmol/L (136-145)
[2025-05-23] MEDS: Ketorolac Tromethamine 30 MG (1 mL) VIAL IVP SCH (14:08)
[2025-05-23] MEDS: Metoclopramide HCl 10 MG (2 mL) VIAL IVP SCH (14:08)
[2025-05-23] MEDS: diphenhydrAMINE 50 MG/ML VIAL IVP SCH (14:08)
[2025-05-24 04:18] LABS: #Basophils 0.04 10x3/uL (0.0-0.2); #Eosinophils 0.14 10x3/uL (0.0-0.7); #Monocytes 0.42 10x3/uL (0.11-0.59); #Neutrophils 3.83 10x3/uL (1.40-6.50); %Basophils 0.8 % (0.0-1.0); %Eosinophils 2.9 % (0.0-10.0); %Lymphocytes 8.4 % (21.0-51.0); %Monocytes 8.6 % (0.0-10.0); %Neutrophils 78.9 % (42.0-75.0); Hematocrit 31.3 % (42.0-52.0); Hemoglobin 9.9 g/dL (14.0-18.0); Mean Corpuscular Hemoglobin 31.3 pg (27.0-31.0); Mean Corpuscular Volume 99.1 fL (78.0-98.0); Platelet Count 298 10x3/uL (130-400); Red Blood Cell (RBC) Count 3.16 mill/uL (4.70-6.10); White Blood Cell (WBC) Count 4.86 10x3/uL (4.8-10.8)
[2025-05-24] MEDS ORDERED: Rocuronium Bromide 10 MG/ML (10ML VIAL) ONE (07:25)
[2025-05-24] MEDS ORDERED: PROPOFOL 20 ML ONE (07:25)
[2025-05-24] MEDS ORDERED: fentaNYL PF 100 MCG/2 ML SYRINGE ONE (07:25)
[2025-05-24] MEDS ORDERED: Ondansetron PF 4 MG/2 ML Vial ONE (07:25)
[2025-05-24] MEDS ORDERED: Ketamine In 0.9 % NaCl 50 MG/5 ML SYRINGE ONE (07:25)
[2025-05-24] MEDS ORDERED: Lidocaine 1% PF 5 ML VIAL ONE (07:25)
[2025-05-24] MEDS ORDERED: Bupivacaine 0.25% HCL 30 ML VIAL ONE (07:43)
[2025-05-24 08:33] LABS: ALT (SGPT) 12 U/L (Less than 45); AST (SGOT) 30 U/L (11-34); Albumin 2.7 g/dL (3.1-4.5); Alkaline Phosphatase 68 U/L (40-110); Anion Gap 12 mmol/L (10-20); BUN (Urea Nitrogen) 13 mg/dL (8.4-25.7); Bilirubin, Total 0.3 mg/dL (0.3-1.2); Calc. Creatinine Clearance 168 mL/min (70-130); Calcium 12.7 mg/dL (7.8-10.44); Carbon Dioxide 23 mmol/L (23-31); Chloride 103 mmol/L (98-107); Globulin 3.7 g/dL (2.4-3.5); Glucose 93 mg/dL (80-115); Potassium 4.0 mmol/L (3.5-5.1); Sodium 134 mmol/L (136-145)
[2025-05-24] MEDS ORDERED: CEFAZOLIN 2 GM VIAL ONE (09:28)
[2025-05-24] MEDS ORDERED: PHENYLEPHRINE-NS 100 MCG/ML 10 ML SYRINGE ONE (11:19)
[2025-05-24] MEDS ORDERED: SUGAMMADEX SODIUM 200 MG/2 ML VIAL ONE (11:19)
[2025-05-24] MEDS ORDERED: HYDROcodone/Acetaminophen 5/325 mg Tablet PO PRN ×2 (12:06)
[2025-05-24] MEDS ORDERED: Ondansetron PF 4 MG/2 ML Vial IVP PRN (12:06)
[2025-05-24 15:30] LABS: #Basophils Less than 0.03 10x3/uL (0.0-0.2); #Eosinophils Less than 0.03 10x3/uL (0.0-0.7); #Monocytes 0.14 10x3/uL (0.11-0.59); #Neutrophils 5.97 10x3/uL (1.40-6.50); %Basophils 0.2 % (0.0-1.0); %Eosinophils 0.0 % (0.0-10.0); %Lymphocytes 2.5 % (21.0-51.0); %Monocytes 2.2 % (0.0-10.0); %Neutrophils 94.6 % (42.0-75.0); Hematocrit 35.0 % (42.0-52.0); Hemoglobin 11.1 g/dL (14.0-18.0); Mean Corpuscular Hemoglobin 31.7 pg (27.0-31.0); Mean Corpuscular Volume 100.0 fL (78.0-98.0); Platelet Count 310 10x3/uL (130-400); Red Blood Cell (RBC) Count 3.50 mill/uL (4.70-6.10); White Blood Cell (WBC) Count 6.31 10x3/uL (4.8-10.8)
[2025-05-24 15:53] LABS: Anion Gap 14 mmol/L (10-20); BUN (Urea Nitrogen) 11 mg/dL (8.4-25.7); Calc. Creatinine Clearance 171 mL/min (70-130); Calcium 11.8 mg/dL (7.8-10.44); Carbon Dioxide 21 mmol/L (23-31); Chloride 103 mmol/L (98-107); Glucose 111 mg/dL (80-115); Potassium 4.6 mmol/L (3.5-5.1); Sodium 133 mmol/L (136-145)
[2025-05-24] MEDS: Acetaminophen 325 MG TAB PO SCH (16:37)
[2025-05-24] MEDS: Gabapentin 300 MG CAP PO SCH (22:14)
[2025-05-25 04:26] LABS: #Basophils Less than 0.03 10x3/uL (0.0-0.2); #Eosinophils Less than 0.03 10x3/uL (0.0-0.7); #Monocytes 0.65 10x3/uL (0.11-0.59); #Neutrophils 5.49 10x3/uL (1.40-6.50); %Basophils 0.3 % (0.0-1.0); %Eosinophils 0.0 % (0.0-10.0); %Lymphocytes 6.2 % (21.0-51.0); %Monocytes 9.8 % (0.0-10.0); %Neutrophils 83.2 % (42.0-75.0); Hematocrit 31.5 % (42.0-52.0); Hemoglobin 10.3 g/dL (14.0-18.0); Mean Corpuscular Hemoglobin 31.3 pg (27.0-31.0); Mean Corpuscular Volume 95.7 fL (78.0-98.0); Platelet Count 324 10x3/uL (130-400); Red Blood Cell (RBC) Count 3.29 mill/uL (4.70-6.10); White Blood Cell (WBC) Count 6.60 10x3/uL (4.8-10.8)
[2025-05-25 05:05] LABS: ALT (SGPT) 8 U/L (Less than 45); AST (SGOT) 22 U/L (11-34); Albumin 2.6 g/dL (3.1-4.5); Alkaline Phosphatase 67 U/L (40-110); Anion Gap 14 mmol/L (10-20); BUN (Urea Nitrogen) 11 mg/dL (8.4-25.7); Bilirubin, Total 0.3 mg/dL (0.3-1.2); Calc. Creatinine Clearance 171 mL/min (70-130); Calcium 11.5 mg/dL (7.8-10.44); Carbon Dioxide 22 mmol/L (23-31); Chloride 103 mmol/L (98-107); Globulin 3.5 g/dL (2.4-3.5); Glucose 78 mg/dL (80-115); Potassium 4.4 mmol/L (3.5-5.1); Sodium 135 mmol/L (136-145)
[2025-05-25] MEDS: HYDROcodone/Acetaminophen 10/325 mg Tablet PO SCH ×2 (09:35→16:35)
[2025-05-25] MEDS ORDERED: HYDROcodone/Acetaminophen 10/325 mg Tablet PO SCH (21:00)
[2025-05-26 04:55] LABS: #Basophils 0.04 10x3/uL (0.0-0.2); #Eosinophils 0.13 10x3/uL (0.0-0.7); #Monocytes 0.57 10x3/uL (0.11-0.59); #Neutrophils 3.63 10x3/uL (1.40-6.50); %Basophils 0.8 % (0.0-1.0); %Eosinophils 2.7 % (0.0-10.0); %Lymphocytes 9.3 % (21.0-51.0); %Monocytes 11.8 % (0.0-10.0); %Neutrophils 74.8 % (42.0-75.0); Hematocrit 32.6 % (42.0-52.0); Hemoglobin 10.5 g/dL (14.0-18.0); Mean Corpuscular Hemoglobin 31.3 pg (27.0-31.0); Mean Corpuscular Volume 97.3 fL (78.0-98.0); Platelet Count 301 10x3/uL (130-400); Red Blood Cell (RBC) Count 3.35 mill/uL (4.70-6.10); White Blood Cell (WBC) Count 4.85 10x3/uL (4.8-10.8)
[2025-05-26 05:25] LABS: ALT (SGPT) 10 U/L (Less than 45); AST (SGOT) 24 U/L (11-34); Albumin 2.6 g/dL (3.1-4.5); Alkaline Phosphatase 66 U/L (40-110); Anion Gap 9 mmol/L (10-20); BUN (Urea Nitrogen) 12 mg/dL (8.4-25.7); Bilirubin, Total 0.2 mg/dL (0.3-1.2); Calc. Creatinine Clearance 151 mL/min (70-130); Calcium 12.6 mg/dL (7.8-10.44); Carbon Dioxide 27 mmol/L (23-31); Chloride 103 mmol/L (98-107); Globulin 3.6 g/dL (2.4-3.5); Glucose 97 mg/dL (80-115); Potassium 4.1 mmol/L (3.5-5.1); Sodium 135 mmol/L (136-145)
[2025-05-26] MEDS ORDERED: Senokot 8.6 MG TAB PO PRN (07:54)
[2025-05-26] MEDS: HYDROcodone/Acetaminophen 10/325 mg Tablet PO PRN (14:37)
[2025-05-26] MEDS ORDERED: Furosemide 40 MG (4 mL) VIAL SLOW IVP SCH (16:00)
[2025-05-27 05:27] LABS: #Basophils 0.03 10x3/uL (0.0-0.2); #Eosinophils 0.25 10x3/uL (0.0-0.7); #Monocytes 0.47 10x3/uL (0.11-0.59); #Neutrophils 5.66 10x3/uL (1.40-6.50); %Basophils 0.4 % (0.0-1.0); %Eosinophils 3.6 % (0.0-10.0); %Lymphocytes 7.2 % (21.0-51.0); %Monocytes 6.8 % (0.0-10.0); %Neutrophils 81.6 % (42.0-75.0); Hematocrit 33.8 % (42.0-52.0); Hemoglobin 10.8 g/dL (14.0-18.0); Mean Corpuscular Hemoglobin 31.6 pg (27.0-31.0); Mean Corpuscular Volume 98.8 fL (78.0-98.0); Platelet Count 333 10x3/uL (130-400); Red Blood Cell (RBC) Count 3.42 mill/uL (4.70-6.10); White Blood Cell (WBC) Count 6.94 10x3/uL (4.8-10.8)
[2025-05-27 05:52] LABS: ALT (SGPT) 9 U/L (Less than 45); AST (SGOT) 25 U/L (11-34); Albumin 2.7 g/dL (3.1-4.5); Alkaline Phosphatase 71 U/L (40-110); Anion Gap 8 mmol/L (10-20); BUN (Urea Nitrogen) 13 mg/dL (8.4-25.7); Bilirubin, Total 0.3 mg/dL (0.3-1.2); Calc. Creatinine Clearance 163 mL/min (70-130); Calcium 13.6 mg/dL (7.8-10.44); Carbon Dioxide 29 mmol/L (23-31); Chloride 104 mmol/L (98-107); Globulin 3.8 g/dL (2.4-3.5); Glucose 102 mg/dL (80-115); Magnesium 1.5 mg/dL (1.6-2.6); Potassium 3.7 mmol/L (3.5-5.1); Sodium 137 mmol/L (136-145)
[2025-05-27] MEDS: Magnesium 2 GM/50 ML(in water) 2 GM in Premix 1 BAG IVPB SCH (06:08)
[2025-05-27] MEDS: Furosemide 20 MG (2 mL) VIAL SLOW IVP SCH (14:23)
[2025-05-27] MEDS: Calcitonin,Salmon,Synthetic 400 UNITS/2 ML SC SCH (16:18)
[2025-05-28 04:27] LABS: #Basophils Less than 0.03 10x3/uL (0.0-0.2); #Eosinophils 0.16 10x3/uL (0.0-0.7); #Monocytes 0.64 10x3/uL (0.11-0.59); #Neutrophils 5.74 10x3/uL (1.40-6.50); %Basophils 0.3 % (0.0-1.0); %Eosinophils 2.3 % (0.0-10.0); %Lymphocytes 6.6 % (21.0-51.0); %Monocytes 9.1 % (0.0-10.0); %Neutrophils 81.1 % (42.0-75.0); Hematocrit 32.1 % (42.0-52.0); Hemoglobin 10.1 g/dL (14.0-18.0); Mean Corpuscular Hemoglobin 31.2 pg (27.0-31.0); Mean Corpuscular Volume 99.1 fL (78.0-98.0); Platelet Count 317 10x3/uL (130-400); Red Blood Cell (RBC) Count 3.24 mill/uL (4.70-6.10); White Blood Cell (WBC) Count 7.07 10x3/uL (4.8-10.8)
[2025-05-28 05:06] LABS: ALT (SGPT) Less than 7 U/L (Less than 45); AST (SGOT) 23 U/L (11-34); Albumin 2.6 g/dL (3.1-4.5); Alkaline Phosphatase 65 U/L (40-110); Anion Gap 10 mmol/L (10-20); BUN (Urea Nitrogen) 12 mg/dL (8.4-25.7); Bilirubin, Total 0.3 mg/dL (0.3-1.2); Calc. Creatinine Clearance 165 mL/min (70-130); Calcium 13.6 mg/dL (7.8-10.44); Carbon Dioxide 27 mmol/L (23-31); Chloride 105 mmol/L (98-107); Globulin 3.5 g/dL (2.4-3.5); Glucose 100 mg/dL (80-115); Potassium 3.9 mmol/L (3.5-5.1); Sodium 138 mmol/L (136-145)
[2025-05-28 07:21] LABS: Magnesium 1.4 mg/dL (1.6-2.6)
[2025-05-28] MEDS: Magnesium Sulfate In Water 4 GM in Premix 1 BAG IVPB SCH (09:56)
[2025-05-28] MEDS: Calcitonin,Salmon,Synthetic 400 UNITS/2 ML SC SCH (18:39)
[2025-05-28] MEDS: Mupirocin 1 GM TUBE NASAL DECOLONIZATION NASAL SCH (20:52)
[2025-05-29 05:17] LABS: #Basophils Less than 0.03 10x3/uL (0.0-0.2); #Eosinophils 0.17 10x3/uL (0.0-0.7); #Monocytes 0.49 10x3/uL (0.11-0.59); #Neutrophils 5.44 10x3/uL (1.40-6.50); %Basophils 0.3 % (0.0-1.0); %Eosinophils 2.6 % (0.0-10.0); %Lymphocytes 6.1 % (21.0-51.0); %Monocytes 7.5 % (0.0-10.0); %Neutrophils 82.9 % (42.0-75.0); Hematocrit 29.5 % (42.0-52.0); Hemoglobin 9.2 g/dL (14.0-18.0); Mean Corpuscular Hemoglobin 31.1 pg (27.0-31.0); Mean Corpuscular Volume 99.7 fL (78.0-98.0); Platelet Count 333 10x3/uL (130-400); Red Blood Cell (RBC) Count 2.96 mill/uL (4.70-6.10); White Blood Cell (WBC) Count 6.56 10x3/uL (4.8-10.8)
[2025-05-29 06:14] LABS: ALT (SGPT) 11 U/L (Less than 45); AST (SGOT) 35 U/L (11-34); Albumin 2.6 g/dL (3.1-4.5); Alkaline Phosphatase 61 U/L (40-110); Anion Gap 13 mmol/L (10-20); BUN (Urea Nitrogen) 14 mg/dL (8.4-25.7); Bilirubin, Total 0.3 mg/dL (0.3-1.2); Calc. Creatinine Clearance 165 mL/min (70-130); Calcium 13.7 mg/dL (7.8-10.44); Carbon Dioxide 26 mmol/L (23-31); Chloride 103 mmol/L (98-107); Globulin 3.5 g/dL (2.4-3.5); Glucose 98 mg/dL (80-115); Potassium 3.8 mmol/L (3.5-5.1); Sodium 138 mmol/L (136-145)
[2025-05-29] MEDS ORDERED: Ondansetron PF 4 MG/2 ML Vial ONE (10:33)
[2025-05-29] MEDS ORDERED: PROPOFOL 20 ML ONE (10:33)
[2025-05-29] MEDS ORDERED: Lidocaine 1% PF 5 ML VIAL ONE (10:33)
[2025-05-29] MEDS ORDERED: fentaNYL PF 100 MCG/2 ML SYRINGE ONE (10:33)
[2025-05-29] MEDS ORDERED: Rocuronium Bromide 10 MG/ML (10ML VIAL) ONE (10:33)
[2025-05-29] MEDS ORDERED: Etomidate 40 MG (20 mL) VIAL ONE (10:33)
[2025-05-29] MEDS ORDERED: CEFAZOLIN 2 GM VIAL ONE (10:34)
[2025-05-29] MEDS ORDERED: PHENYLEPHRINE-NS 100 MCG/ML 10 ML SYRINGE ONE (10:36)
[2025-05-29] MEDS ORDERED: SUGAMMADEX SODIUM 200 MG/2 ML VIAL ONE (11:13)
[2025-05-29] MEDS ORDERED: PACU-Morphine 4MG/ML VIAL SLOW IVP PRN (14:45)
[2025-05-29] MEDS: Furosemide 40 MG (4 mL) VIAL SLOW IVP SCH (18:31)
[2025-05-30 05:38] LABS: #Basophils Less than 0.03 10x3/uL (0.0-0.2); #Eosinophils 0.03 10x3/uL (0.0-0.7); #Monocytes 0.76 10x3/uL (0.11-0.59); #Neutrophils 7.57 10x3/uL (1.40-6.50); %Basophils 0.2 % (0.0-1.0); %Eosinophils 0.3 % (0.0-10.0); %Lymphocytes 4.4 % (21.0-51.0); %Monocytes 8.6 % (0.0-10.0); %Neutrophils 86.0 % (42.0-75.0); Hematocrit 29.7 % (42.0-52.0); Hemoglobin 9.5 g/dL (14.0-18.0); Mean Corpuscular Hemoglobin 31.4 pg (27.0-31.0); Mean Corpuscular Volume 98.0 fL (78.0-98.0); Platelet Count 350 10x3/uL (130-400); Red Blood Cell (RBC) Count 3.03 mill/uL (4.70-6.10); White Blood Cell (WBC) Count 8.81 10x3/uL (4.8-10.8)
[2025-05-30 06:06] LABS: ALT (SGPT) 11 U/L (Less than 45); AST (SGOT) 36 U/L (11-34); Albumin 2.6 g/dL (3.1-4.5); Alkaline Phosphatase 63 U/L (40-110); Anion Gap 13 mmol/L (10-20); BUN (Urea Nitrogen) 15 mg/dL (8.4-25.7); Bilirubin, Total 0.3 mg/dL (0.3-1.2); Calc. Creatinine Clearance 143 mL/min (70-130); Calcium 13.1 mg/dL (7.8-10.44); Carbon Dioxide 28 mmol/L (23-31); Chloride 102 mmol/L (98-107); Globulin 3.7 g/dL (2.4-3.5); Glucose 76 mg/dL (80-115); Magnesium 1.5 mg/dL (1.6-2.6); Potassium 4.3 mmol/L (3.5-5.1); Sodium 139 mmol/L (136-145)
[2025-05-30] MEDS: Furosemide 40 MG (4 mL) VIAL SLOW IVP SCH (06:20)
[2025-05-30] MEDS: Magnesium 2 GM/50 ML(in water) 2 GM in Premix 1 BAG IVPB SCH (09:17)
[2025-05-30] MEDS ORDERED: Glycopyrrolate 0.4 MG/ 2 ML VIAL SLOW IVP PRN (12:11)
[2025-06-01] MEDS ORDERED: HYDROmorphone 2 MG TAB PO PRN (11:18)
[2025-06-01] MEDS: HYDROmorphone 2 MG TAB PO SCH (11:43)
[2025-06-04 08:18] VITALS: BP 98/64; TEMP 97.5
== END 2025-06-04 12:40 | disposition hospice, inpatient (51) | DRG 163 ==
LOC: ERS 10:19 → ERHOLD 16:02 → 2NO 18:38 → MSONC 05-25 18:30
PROVIDERS: ADMIT Student in an Organized Health Care Education/Training Program; ATTEND Student in an Organized Health Care Education/Training Program
PROC: 0W9B3ZX Drainage of Left Pleural Cavity, Percutaneous Approach, Diagnostic (ICD-10-PCS; 2025-05-16)
PROC: 0BCJ8ZZ Extirpation of Matter from Left Lower Lung Lobe, Via Natural or Artificial Opening Endoscopic (ICD-10-PCS; principal; 2025-05-24)
PROC: 0BB Respiratory System, Excision (ICD-10-PCS; 2025-05-24)
PROC: 07T74ZZ Resection of Thorax Lymphatic, Percutaneous Endoscopic Approach (ICD-10-PCS; 2025-05-24)
PROC: 0W9B3ZZ Drainage of Left Pleural Cavity, Percutaneous Approach (ICD-10-PCS; 2025-05-24)
PROC: 0WHB33Z Insertion of Infusion Device into Left Pleural Cavity, Percutaneous Approach (ICD-10-PCS; 2025-05-29)
PROC: 3E03329 Introduction of Other Anti-infective into Peripheral Vein, Percutaneous Approach (ICD-10-PCS; 2025-05-29)
DX: C78.2 Secondary malignant neoplasm of pleura (principal); E43 Unspecified severe protein-calorie malnutrition; J96.01 Acute respiratory failure with hypoxia; E87.1 Hypo-osmolality and hyponatremia; I13.0 Hypertensive heart and chronic kidney disease with heart failure and stage 1 through stage 4 chronic kidney disease, or unspecified chronic kidney disease; I47.20 Ventricular tachycardia, unspecified; C32.9 Malignant neoplasm of larynx, unspecified; J91.0 Malignant pleural effusion; J44.9 Chronic obstructive pulmonary disease, unspecified; Z98.890 Other specified postprocedural states; Z86.711 Personal history of pulmonary embolism; E11.51 Type 2 diabetes mellitus with diabetic peripheral angiopathy without gangrene; Z79.01 Long term (current) use of anticoagulants; I48.91 Unspecified atrial fibrillation; E78.5 Hyperlipidemia, unspecified; E66.9 Obesity, unspecified; E83.52 Hypercalcemia; E83.42 Hypomagnesemia; R74.01 Elevation of levels of liver transaminase levels; I50.9 Heart failure, unspecified; E83.39 Other disorders of phosphorus metabolism; Z79.899 Other long term (current) drug therapy; Z93.0 Tracheostomy status; I25.10 Atherosclerotic heart disease of native coronary artery without angina pectoris; Z68.26 Body mass index [BMI] 26.0-26.9, adult; L89.629 Pressure ulcer of left heel, unspecified stage; R53.81 Other malaise; E87.6 Hypokalemia; R51.9 Headache, unspecified; D64.9 Anemia, unspecified; M54.50 Low back pain, unspecified; Z51.5 Encounter for palliative care; N18.1 Chronic kidney disease, stage 1; D63.1 Anemia in chronic kidney disease; E88.09 Other disorders of plasma-protein metabolism, not elsewhere classified
CPT/HCPCS: 36415; 36416; 70450; 71045; 71275; 74177; 80053; 81001; 82150; 82310; 82330; 82652; 82805; 82945; 83605; 83615; 83690; 83735; 83880; 83970; 83986; 84100; 84157; 84478; 84484; 85025; 85060; 85610; 85730; 86850; 86900; 86901; 87040; 87086; 87116; 87206; 87428; 88112; 88305; 88341; 88342; 89051; 93005; 94760; 96365; 96372; 96375; 97139; A4314; A7048; C1776; J0169; J0630; J0665; J0692; J0780; J1100; J1200; J1642; J1650; J1790; J1885; J1940; J2060; J2250; J2270; J2470; J2704; J2765; J3010; J3411; J3475; J3489; J3490; J7030; Q9967; S2900

== ENCOUNTER 2025-06-04 13:42 | Inpatient (IN) | payer OTHER ==
[2025-06-04] MEDS ORDERED: Bisacodyl 10 MG SUPP PR PRN (14:26)
[2025-06-04] MEDS ORDERED: Scopolamine 1 mg/72 hour Patch TOP PRN (14:30)
[2025-06-04] MEDS ORDERED: Ondansetron PF 4 MG/2 ML Vial IVP PRN (14:30)
[2025-06-04 15:05] VITALS: BMI 26.5
[2025-06-05] MEDS: Glycopyrrolate 0.4 MG/ 2 ML VIAL SLOW IVP PRN (02:56)
[2025-06-06] MEDS: Scopolamine 1 mg/72 hour Patch TD SCH (08:34)
[2025-06-07 08:24] VITALS: BP 142/79; TEMP 98.7
[2025-06-07] MEDS: Scopolamine 1 mg/72 hour Patch TD SCH (13:25)
== END 2025-06-07 21:51 | disposition expired | DRG 951 ==
LOC: MSONC 13:42
PROVIDERS: ADMIT Family Medicine; ATTEND Family Medicine
DX: Z51.5 Encounter for palliative care (principal); J96.01 Acute respiratory failure with hypoxia; C32.8 Malignant neoplasm of overlapping sites of larynx; E83.52 Hypercalcemia; D64.9 Anemia, unspecified; E78.5 Hyperlipidemia, unspecified; J44.9 Chronic obstructive pulmonary disease, unspecified; E11.9 Type 2 diabetes mellitus without complications; Z79.899 Other long term (current) drug therapy; Z79.01 Long term (current) use of anticoagulants
CPT/HCPCS: J2060; J2270